=== PATIENT | male | born 1975 | race Two or more races ===

== ENCOUNTER 2021-11-10 12:40 | Inpatient (IN) | payer OTHER ==
[2021-11-10] MEDS ORDERED: MAGNESIUM CITRATE 300 ML BOTTLE PO PRN (12:54)
[2021-11-10] MEDS ORDERED: guaiFENesin 200 MG/10 ML 10 ML UNIT-DOSE CUPS PO PRN (12:54)
[2021-11-10] MEDS ORDERED: P-EPHED 60MG/TRIPROLIDI 2.5MG TABLET PO PRN (12:54)
[2021-11-10] MEDS ORDERED: MAGNESIUM HYDROX 2400MG/30ML ORAL SUSPENSION 30 ML CUP PO PRN (12:54)
[2021-11-10] MEDS ORDERED: cloNIDine HCL 0.1 MG TABLET PO STA (12:56)
[2021-11-10 16:01] VITALS: BMI 29.2
[2021-11-10 16:59] LABS: HEMATOCRIT 41.2 % (35.4-49); HEMOGLOBIN 13.4 GM/dL (11.7-16.9); MCH 26.5 pg (25.7-33.7); MCHC 32.5 g/dl (32.0-35.9); MEAN CELL VOLUME 81.7 fl (80-96); MEAN PLT VOLUME 9.4 fl (7.5-11.1); PLATELET COUNT 282 10^3/uL (134-434); RBC 5.04 M/mm3 (4.00-5.60); RDW 14.4 % (11.9-15.9); WHITE BLOOD COUNT 5.4 K/mm3 (4.0-10.0)
[2021-11-10 17:02] LABS: CHLORIDE 99 mmol/L (98-107); SODIUM 136 mmol/L (136-145)
[2021-11-10 17:07] LABS: ALBUMIN 3.4 g/dl (3.4-5.0); CALCIUM 8.9 mg/dL (8.5-10.1)
[2021-11-10 17:08] LABS: ANION GAP 10 MMOL/L (8-16); BLOOD UREA NITROGEN 13.4 mg/dL (7-18); CO2 28 mmol/L (21-32)
[2021-11-10 17:10] LABS: CREATININE 1.2 mg/dL (0.55-1.3); SGOT/AST 12 U/L (15-37)
[2021-11-10 17:12] LABS: TOT PROT 6.6 g/dl (6.4-8.2)
[2021-11-10 17:13] LABS: ALK PHOS 82 U/L (45-117)
[2021-11-10 17:16] LABS: BILIRUBIN,TOTAL 0.8 mg/dL (0.2-1)
[2021-11-10 17:27] LABS: SGPT/ALT 29 U/L (13-61)
[2021-11-10 17:29] LABS: SYPHILIS W/ RPR CONF NON-REACTIVE (NONREACTIVE)
[2021-11-10 18:57] LABS: GLUCOSE,RANDOM 495 mg/dL (74-106)
[2021-11-10] MEDS ORDERED: INSULIN (NOVOLOG) ASPART 100 UNITS/ML 10ML VIAL SQ ONE (20:23)
[2021-11-10] MEDS: hydrOXYzine PAMOATE 25 MG CAPSULE (FP) PO SCH ×2 (21:44→21:51)
[2021-11-10] MEDS: PRENATAL VITAMINS W/ FOLIC ACID TABLET (FP) PO SCH (21:44)
[2021-11-10] MEDS: INSULIN SLIDING SCALE (NOVOLOG) 1 VIAL SQ SCH (21:49)
[2021-11-10] MEDS: MELATONIN 5 MG TABLETS PO SCH (21:51)
[2021-11-10] MEDS: THIAMINE HCL 100 MG TABLET (FP) PO SCH (21:51)
[2021-11-10] MEDS: cloNIDine HCL 0.1 MG TABLET PO SCH (23:20)
[2021-11-10] MEDS ORDERED: TUBERCULIN PPD 5 TU/0.1ML VIAL ID ONE ×2 (23:51→23:57)
[2021-11-11] MEDS: metFORMIN HCL 500 MG TABLET (FP) PO SCH ×2 (06:32→16:44)
[2021-11-11] MEDS: sitaGLIPtin PHOSPHATE 50 MG TABLET PO SCH (06:32)
[2021-11-11] MEDS: hydrOXYzine PAMOATE 25 MG CAPSULE (FP) PO SCH ×2 (06:34→10:55)
[2021-11-11] MEDS ORDERED: INSULIN (NOVOLOG) ASPART 100 UNITS/ML 10ML VIAL ONE ×3 (07:39→21:48)
[2021-11-11] MEDS: INSULIN SLIDING SCALE (NOVOLOG) 1 VIAL SQ SCH ×4 (08:01→21:37)
[2021-11-11] MEDS: cloNIDine HCL 0.1 MG TABLET PO SCH ×2 (10:20→18:30)
[2021-11-11] MEDS: LOSARTAN POTASSIUM 50 MG TABLET PO SCH (10:21)
[2021-11-11] MEDS: PRENATAL VITAMINS W/ FOLIC ACID TABLET (FP) PO SCH (10:22)
[2021-11-11 17:21] LABS: URINE APPEARANCE CLEAR; URINE BILIRUBIN NEGATIVE (NEGATIVE); URINE COLOR YELLOW; URINE GLUCOSE (UA) 3+ (NEGATIVE); URINE KETONE NEGATIVE (NEGATIVE); URINE LEUK ESTERASE NEGATIVE (NEGATIVE); URINE NITRITE NEGATIVE (NEGATIVE); URINE PROTEIN NEGATIVE (NEGATIVE); URINE UROBILINOGEN 0.2 mg/dL (0.2-1.0)
[2021-11-11] MEDS: THIAMINE HCL 100 MG TABLET (FP) PO SCH (21:30)
[2021-11-11] MEDS: MELATONIN 5 MG TABLETS PO SCH (21:30)
[2021-11-11] MEDS: hydrOXYzine PAMOATE 25 MG CAPSULE (FP) PO PRN (21:31)
[2021-11-11] MEDS ORDERED: INSULIN (LEVEMIR) 100 UNITS/ML UNITS SQ ONE (21:49)
[2021-11-12] MEDS: cloNIDine HCL 0.1 MG TABLET PO SCH ×2 (06:23→16:28)
[2021-11-12] MEDS: sitaGLIPtin PHOSPHATE 50 MG TABLET PO SCH (06:23)
[2021-11-12] MEDS: metFORMIN HCL 500 MG TABLET (FP) PO SCH ×2 (06:23→16:27)
[2021-11-12] MEDS ORDERED: INSULIN (NOVOLOG) ASPART 100 UNITS/ML 10ML VIAL ONE (07:20)
[2021-11-12] MEDS: INSULIN SLIDING SCALE (NOVOLOG) 1 VIAL SQ SCH ×4 (08:02→21:29)
[2021-11-12] MEDS: LOSARTAN POTASSIUM 50 MG TABLET PO SCH (11:00)
[2021-11-12] MEDS: PRENATAL VITAMINS W/ FOLIC ACID TABLET (FP) PO SCH (11:53)
[2021-11-12] MEDS: hydrOXYzine PAMOATE 25 MG CAPSULE (FP) PO PRN (21:27)
[2021-11-12] MEDS: MELATONIN 5 MG TABLETS PO SCH (21:28)
[2021-11-12] MEDS: THIAMINE HCL 100 MG TABLET (FP) PO SCH (21:29)
[2021-11-13] MEDS: metFORMIN HCL 500 MG TABLET (FP) PO SCH ×2 (06:31→17:07)
[2021-11-13] MEDS: cloNIDine HCL 0.1 MG TABLET PO SCH ×2 (06:31→17:08)
[2021-11-13] MEDS: sitaGLIPtin PHOSPHATE 50 MG TABLET PO SCH (06:31)
[2021-11-13] MEDS: INSULIN SLIDING SCALE (NOVOLOG) 1 VIAL SQ SCH ×4 (07:01→21:04)
[2021-11-13] MEDS: LOSARTAN POTASSIUM 50 MG TABLET PO SCH (11:34)
[2021-11-13] MEDS: MAG HYDROX/AL HYDROX/SIMETH 30 ML UNIT-DOSE CUP PO PRN ×2 (11:35→18:20)
[2021-11-13] MEDS ORDERED: INSULIN (NOVOLOG) ASPART 100 UNITS/ML 10ML VIAL ONE (11:39)
[2021-11-13] MEDS: PRENATAL VITAMINS W/ FOLIC ACID TABLET (FP) PO SCH (11:40)
[2021-11-13] MEDS: LOPERAMIDE HCL 2 MG CAPSULE PO PRN ×2 (14:46→21:41)
[2021-11-13] MEDS: ONDANSETRON *ODT* 4 MG TABLET SL PRN (17:07)
[2021-11-13] MEDS: MELATONIN 5 MG TABLETS PO SCH (21:03)
[2021-11-13] MEDS: THIAMINE HCL 100 MG TABLET (FP) PO SCH (21:03)
[2021-11-13] MEDS: hydrOXYzine PAMOATE 25 MG CAPSULE (FP) PO PRN (21:03)
[2021-11-14] MEDS: sitaGLIPtin PHOSPHATE 50 MG TABLET PO SCH (06:12)
[2021-11-14] MEDS: LOPERAMIDE HCL 2 MG CAPSULE PO PRN (06:12)
[2021-11-14] MEDS: cloNIDine HCL 0.1 MG TABLET PO SCH ×2 (06:13→17:52)
[2021-11-14] MEDS: metFORMIN HCL 500 MG TABLET (FP) PO SCH ×2 (06:13→16:43)
[2021-11-14] MEDS: INSULIN SLIDING SCALE (NOVOLOG) 1 VIAL SQ SCH ×4 (07:35→21:13)
[2021-11-14] MEDS: MAG HYDROX/AL HYDROX/SIMETH 30 ML UNIT-DOSE CUP PO PRN (09:33)
[2021-11-14] MEDS: LOSARTAN POTASSIUM 50 MG TABLET PO SCH (09:33)
[2021-11-14] MEDS: PRENATAL VITAMINS W/ FOLIC ACID TABLET (FP) PO SCH (09:34)
[2021-11-14] MEDS ORDERED: BUPRENORPHINE/NALOXONE 4 MG/1 MG FILM PACKET SL ONE ×3 (10:15→22:00)
[2021-11-14] MEDS ORDERED: INSULIN (NOVOLOG) ASPART 100 UNITS/ML 10ML VIAL ONE ×2 (11:08→16:43)
[2021-11-14] MEDS: CEPHALEXIN MONOHYDRATE 500 MG CAPSULE (UD) PO SCH ×3 (11:55→23:02)
[2021-11-14] MEDS: BACITRACIN 0.9 GM PACKET TP SCH (15:00)
[2021-11-14] MEDS: IBUPROFEN 400 MG TABLET (FP) PO PRN (15:15)
[2021-11-14] MEDS: ACETAMINOPHEN 325 MG TABLET (FP) PO PRN (19:13)
[2021-11-14] MEDS: THIAMINE HCL 100 MG TABLET (FP) PO SCH (21:09)
[2021-11-14] MEDS: MELATONIN 5 MG TABLETS PO SCH (21:09)
[2021-11-14] MEDS: hydrOXYzine PAMOATE 25 MG CAPSULE (FP) PO PRN (21:10)
[2021-11-15] MEDS: metFORMIN HCL 500 MG TABLET (FP) PO SCH ×2 (05:59→16:50)
[2021-11-15] MEDS: CEPHALEXIN MONOHYDRATE 500 MG CAPSULE (UD) PO SCH ×4 (05:59→23:04)
[2021-11-15] MEDS: sitaGLIPtin PHOSPHATE 50 MG TABLET PO SCH (06:00)
[2021-11-15] MEDS: cloNIDine HCL 0.1 MG TABLET PO SCH ×2 (06:00→18:05)
[2021-11-15] MEDS: INSULIN SLIDING SCALE (NOVOLOG) 1 VIAL SQ SCH ×4 (07:56→21:19)
[2021-11-15] MEDS ORDERED: INSULIN (NOVOLOG) ASPART 100 UNITS/ML 10ML VIAL ONE ×2 (07:56→11:37)
[2021-11-15] MEDS: ACETAMINOPHEN 325 MG TABLET (FP) PO PRN ×3 (07:57→16:48)
[2021-11-15] MEDS: PRENATAL VITAMINS W/ FOLIC ACID TABLET (FP) PO SCH (09:49)
[2021-11-15] MEDS: LOSARTAN POTASSIUM 50 MG TABLET PO SCH (09:49)
[2021-11-15] MEDS: BACITRACIN 0.9 GM PACKET TP SCH (09:49)
[2021-11-15] MEDS ORDERED: BUPRENORPHINE/NALOXONE 12 MG-3 MG SL FILM PACKET SL SCH (10:00)
[2021-11-15] MEDS: CHLORTHALIDONE 25 MG TABLET PO SCH (11:32)
[2021-11-15] MEDS: FAMOTIDINE 20 MG TABLET PO SCH ×2 (11:32→21:15)
[2021-11-15 16:17] LABS: SARS-CoV-2 NAA Not Detected (Not Detected)
[2021-11-15] MEDS: MELATONIN 5 MG TABLETS PO SCH (21:15)
[2021-11-15] MEDS: THIAMINE HCL 100 MG TABLET (FP) PO SCH (21:15)
[2021-11-15] MEDS: ATORVASTATIN CA 40 MG TABLET (FP) PO SCH (21:16)
[2021-11-15] MEDS: hydrOXYzine PAMOATE 25 MG CAPSULE (FP) PO PRN (21:17)
[2021-11-15] MEDS: INSULIN (LEVEMIR) 100 UNITS/ML UNITS SQ SCH (21:18)
[2021-11-16] MEDS: cloNIDine HCL 0.1 MG TABLET PO SCH ×2 (06:10→17:33)
[2021-11-16] MEDS: metFORMIN HCL 500 MG TABLET (FP) PO SCH ×2 (06:11→16:51)
[2021-11-16] MEDS: CEPHALEXIN MONOHYDRATE 500 MG CAPSULE (UD) PO SCH ×4 (06:11→23:24)
[2021-11-16] MEDS: BUPRENORPHINE/NALOXONE 12 MG-3 MG SL FILM PACKET SL SCH ×2 (06:11→10:11)
[2021-11-16] MEDS: sitaGLIPtin PHOSPHATE 50 MG TABLET PO SCH (06:11)
[2021-11-16] MEDS ORDERED: INSULIN (NOVOLOG) ASPART 100 UNITS/ML 10ML VIAL ONE ×3 (06:37→21:37)
[2021-11-16] MEDS: INSULIN SLIDING SCALE (NOVOLOG) 1 VIAL SQ SCH ×4 (07:23→21:29)
[2021-11-16] MEDS: BACITRACIN 0.9 GM PACKET TP SCH (10:07)
[2021-11-16] MEDS: LOSARTAN POTASSIUM 50 MG TABLET PO SCH (10:07)
[2021-11-16] MEDS: PRENATAL VITAMINS W/ FOLIC ACID TABLET (FP) PO SCH (10:07)
[2021-11-16] MEDS: FAMOTIDINE 20 MG TABLET PO SCH ×2 (10:08→21:31)
[2021-11-16] MEDS: CHLORTHALIDONE 25 MG TABLET PO SCH (11:00)
[2021-11-16] MEDS: THIAMINE HCL 100 MG TABLET (FP) PO SCH (21:26)
[2021-11-16] MEDS: INSULIN (LEVEMIR) 100 UNITS/ML UNITS SQ SCH (21:29)
[2021-11-16] MEDS: ATORVASTATIN CA 40 MG TABLET (FP) PO SCH (21:31)
[2021-11-16] MEDS: SUVOREXANT 15 MG TABLET PO PRN (21:31)
[2021-11-16] MEDS ORDERED: INSULIN (LEVEMIR) 100 UNITS/ML UNITS SQ ONE (21:36)
[2021-11-17] MEDS: ACETAMINOPHEN 325 MG TABLET (FP) PO PRN ×2 (00:47→21:39)
[2021-11-17] MEDS: cloNIDine HCL 0.1 MG TABLET PO SCH ×2 (06:02→18:41)
[2021-11-17] MEDS: metFORMIN HCL 500 MG TABLET (FP) PO SCH ×2 (06:02→16:52)
[2021-11-17] MEDS: sitaGLIPtin PHOSPHATE 50 MG TABLET PO SCH (06:02)
[2021-11-17] MEDS: CEPHALEXIN MONOHYDRATE 500 MG CAPSULE (UD) PO SCH ×4 (06:02→23:07)
[2021-11-17] MEDS: BUPRENORPHINE/NALOXONE 12 MG-3 MG SL FILM PACKET SL SCH (06:06)
[2021-11-17] MEDS: INSULIN SLIDING SCALE (NOVOLOG) 1 VIAL SQ SCH ×4 (07:54→22:26)
[2021-11-17] MEDS ORDERED: INSULIN (NOVOLOG) ASPART 100 UNITS/ML 10ML VIAL ONE ×4 (07:56→22:30)
[2021-11-17] MEDS: BACITRACIN 0.9 GM PACKET TP SCH (09:45)
[2021-11-17] MEDS: CHLORTHALIDONE 25 MG TABLET PO SCH (09:45)
[2021-11-17] MEDS: LOSARTAN POTASSIUM 50 MG TABLET PO SCH (09:45)
[2021-11-17] MEDS: FAMOTIDINE 20 MG TABLET PO SCH (09:46)
[2021-11-17] MEDS: PRENATAL VITAMINS W/ FOLIC ACID TABLET (FP) PO SCH (09:46)
[2021-11-17] MEDS ORDERED: FAMOTIDINE 20 MG TABLET PO PRN (10:27)
[2021-11-17] MEDS: MAG HYDROX/AL HYDROX/SIMETH 30 ML UNIT-DOSE CUP PO PRN (18:40)
[2021-11-17] MEDS: THIAMINE HCL 100 MG TABLET (FP) PO SCH (21:36)
[2021-11-17] MEDS: ATORVASTATIN CA 40 MG TABLET (FP) PO SCH (21:39)
[2021-11-17] MEDS: SUVOREXANT 15 MG TABLET PO PRN (21:40)
[2021-11-17] MEDS ORDERED: amLODIPine BESYLATE 5 MG TABLET (FP) PO ONE (22:07)
[2021-11-17] MEDS: INSULIN (LEVEMIR) 100 UNITS/ML UNITS SQ SCH (22:26)
[2021-11-17] MEDS ORDERED: INSULIN (LEVEMIR) 100 UNITS/ML UNITS SQ ONE (22:31)
[2021-11-18] MEDS: IBUPROFEN 400 MG TABLET (FP) PO PRN (02:16)
[2021-11-18] MEDS: MAG HYDROX/AL HYDROX/SIMETH 30 ML UNIT-DOSE CUP PO PRN (02:16)
[2021-11-18] MEDS: ONDANSETRON *ODT* 4 MG TABLET SL PRN (02:41)
[2021-11-18 04:19] VITALS: BP 168/111; PULSE 101; TEMP 96.9
[2021-11-18] MEDS ORDERED: LOSARTAN POTASSIUM 50 MG TABLET PO SCH (06:00)
[2021-11-18] MEDS ORDERED: CHLORTHALIDONE 25 MG TABLET PO SCH (06:00)
[2021-11-18] MEDS: cloNIDine HCL 0.1 MG TABLET PO SCH (07:27)
[2021-11-18] MEDS: CEPHALEXIN MONOHYDRATE 500 MG CAPSULE (UD) PO SCH (07:28)
[2021-11-18] MEDS: metFORMIN HCL 500 MG TABLET (FP) PO SCH (07:29)
[2021-11-18] MEDS: sitaGLIPtin PHOSPHATE 50 MG TABLET PO SCH (07:29)
[2021-11-18] MEDS: BUPRENORPHINE/NALOXONE 12 MG-3 MG SL FILM PACKET SL SCH (07:29)
[2021-11-18] MEDS: INSULIN SLIDING SCALE (NOVOLOG) 1 VIAL SQ SCH (07:30)
== END 2021-11-18 04:43 | disposition short-term general hospital (02) | DRG 772 ==
LOC: YASAS 12:40 → Y3E 18:00
PROVIDERS: ADMIT Allergy & Immunology; ATTEND Allergy & Immunology
PROC: HZ42ZZZ Group Counseling for Substance Abuse Treatment, Cognitive-Behavioral (ICD-10-PCS; principal; 2021-11-10)
DX: F11.20 Opioid dependence, uncomplicated (principal); F14.20 Cocaine dependence, uncomplicated; F31.9 Bipolar disorder, unspecified; F39 Unspecified mood [affective] disorder; F90.9 Attention-deficit hyperactivity disorder, unspecified type; I10 Essential (primary) hypertension; E78.5 Hyperlipidemia, unspecified; L02.512 Cutaneous abscess of left hand; L02.414 Cutaneous abscess of left upper limb; E29.1 Testicular hypofunction; J06.9 Acute upper respiratory infection, unspecified; R51.9 Headache, unspecified; R00.0 Tachycardia, unspecified; R11.2 Nausea with vomiting, unspecified; Z88.8 Allergy status to other drugs, medicaments and biological substances; Z91.013 Allergy to seafood
CPT/HCPCS: 36415; 71045-TC-FY; 80053; 81003; 82962; 85027; 86780; 86803; 87522; 93005; 93010; C9803-CS; J0735; Q0162; U0003; U0005

== ENCOUNTER 2022-03-06 13:08 | Inpatient (IN) | payer OTHER ==
[2022-03-06 13:43] VITALS: BMI 39.0
[2022-03-06] MEDS ORDERED: MAGNESIUM CITRATE 300 ML BOTTLE PO PRN (15:46)
[2022-03-06] MEDS ORDERED: guaiFENesin 200 MG/10 ML 10 ML UNIT-DOSE CUPS PO PRN (15:46)
[2022-03-06] MEDS ORDERED: NICOTINE 10 MG CARTRIDGE (INHALER) IH PRN (15:46)
[2022-03-06] MEDS ORDERED: P-EPHED 60MG/TRIPROLIDI 2.5MG TABLET PO PRN (15:46)
[2022-03-06] MEDS ORDERED: MAG HYDROX/AL HYDROX/SIMETH 30 ML UNIT-DOSE CUP PO PRN (15:46)
[2022-03-06] MEDS ORDERED: LOPERAMIDE HCL 2 MG CAPSULE PO PRN (15:46)
[2022-03-06] MEDS ORDERED: MAGNESIUM HYDROX 2400MG/30ML ORAL SUSPENSION 30 ML CUP PO PRN (15:46)
[2022-03-06] MEDS ORDERED: hydrOXYzine PAMOATE 25 MG CAPSULE (FP) PO ONE (18:04)
[2022-03-06] MEDS: hydrOXYzine PAMOATE 25 MG CAPSULE (FP) PO SCH ×2 (18:19→21:40)
[2022-03-06] MEDS: metFORMIN HCL 500 MG TABLET (FP) PO SCH (18:19)
[2022-03-06] MEDS: LOSARTAN POTASSIUM 50 MG TABLET PO SCH (18:19)
[2022-03-06] MEDS ORDERED: BUPRENORPHINE/NALOXONE 4 MG/1 MG FILM PACKET ONE ×2 (18:38→18:47)
[2022-03-06] MEDS: BUPRENORPHINE/NALOXONE 8 MG/2 MG FILM PACKET SL SCH (18:49)
[2022-03-06] MEDS: INSULIN SLIDING SCALE (NOVOLOG) 1 VIAL SQ SCH (19:56)
[2022-03-06] MEDS: PRENATAL VITAMINS W/ FOLIC ACID TABLET (FP) PO SCH (19:56)
[2022-03-06] MEDS: FAMOTIDINE 20 MG TABLET PO SCH (21:40)
[2022-03-06] MEDS: THIAMINE HCL 100 MG TABLET (FP) PO SCH (21:40)
[2022-03-06] MEDS: INSULIN (LEVEMIR) 100 UNITS/ML UNITS SQ SCH (21:41)
[2022-03-06] MEDS: cloNIDine HCL 0.1 MG TABLET PO SCH (21:41)
[2022-03-06] MEDS: ATORVASTATIN CA 40 MG TABLET (FP) PO SCH (21:41)
[2022-03-06] MEDS ORDERED: MELATONIN 5 MG TABLETS PO SCH (22:00)
[2022-03-06] MEDS: CHLORTHALIDONE 25 MG TABLET PO SCH (23:49)
[2022-03-07] MEDS: metFORMIN HCL 500 MG TABLET (FP) PO SCH ×2 (06:42→16:38)
[2022-03-07] MEDS: hydrOXYzine PAMOATE 25 MG CAPSULE (FP) PO SCH ×2 (06:42→10:03)
[2022-03-07] MEDS: INSULIN SLIDING SCALE (NOVOLOG) 1 VIAL SQ SCH ×5 (06:43→21:03)
[2022-03-07] MEDS ORDERED: sitaGLIPtin PHOSPHATE 50 MG TABLET PO SCH (07:00)
[2022-03-07] MEDS: BUPRENORPHINE/NALOXONE 8 MG/2 MG FILM PACKET SL SCH (10:02)
[2022-03-07] MEDS: PRENATAL VITAMINS W/ FOLIC ACID TABLET (FP) PO SCH (10:02)
[2022-03-07] MEDS: FAMOTIDINE 20 MG TABLET PO SCH ×2 (10:03→21:03)
[2022-03-07] MEDS: LOSARTAN POTASSIUM 50 MG TABLET PO SCH (10:03)
[2022-03-07] MEDS: cloNIDine HCL 0.1 MG TABLET PO SCH ×2 (10:03→21:02)
[2022-03-07] MEDS: CHLORTHALIDONE 25 MG TABLET PO SCH (10:04)
[2022-03-07] MEDS ORDERED: MELATONIN 5 MG TABLETS PO PRN (10:29)
[2022-03-07] MEDS ORDERED: ARIPiprazole 5 MG TABLET PO ONE (11:45)
[2022-03-07 12:28] LABS: PH,URINE 6.5 (5.0-8.0); URINE APPEARANCE CLEAR; URINE BILIRUBIN NEGATIVE (NEGATIVE); URINE COLOR YELLOW; URINE GLUCOSE (UA) 2+ (NEGATIVE); URINE KETONE NEGATIVE (NEGATIVE); URINE LEUK ESTERASE NEGATIVE (NEGATIVE); URINE NITRITE NEGATIVE (NEGATIVE); URINE PROTEIN TRACE (NEGATIVE); URINE UROBILINOGEN 0.2 mg/dL (0.2-1.0)
[2022-03-07 13:25] LABS: BLOOD UREA NITROGEN 28.9 mg/dL (7-18)
[2022-03-07 13:27] LABS: ALBUMIN 2.9 g/dl (3.4-5.0); CREATININE 0.9 mg/dL (0.55-1.3)
[2022-03-07 13:28] LABS: BILIRUBIN,TOTAL 0.6 mg/dL (0.2-1); TOT PROT 6.4 g/dl (6.4-8.2)
[2022-03-07 13:43] LABS: SYPHILIS W/ RPR CONF NON-REACTIVE (NONREACTIVE)
[2022-03-07] MEDS: THIAMINE HCL 100 MG TABLET (FP) PO SCH (21:02)
[2022-03-07] MEDS: MELATONIN 5 MG TABLETS PO PRN (21:02)
[2022-03-07] MEDS: hydrOXYzine PAMOATE 25 MG CAPSULE (FP) PO PRN (21:02)
[2022-03-07] MEDS: INSULIN (LEVEMIR) 100 UNITS/ML UNITS SQ SCH (21:03)
[2022-03-07] MEDS: ATORVASTATIN CA 40 MG TABLET (FP) PO SCH (21:03)
[2022-03-08] MEDS: metFORMIN HCL 500 MG TABLET (FP) PO SCH ×2 (06:44→16:39)
[2022-03-08] MEDS: sitaGLIPtin PHOSPHATE 50 MG TABLET PO SCH (06:45)
[2022-03-08] MEDS: INSULIN SLIDING SCALE (NOVOLOG) 1 VIAL SQ SCH ×4 (06:45→21:36)
[2022-03-08] MEDS: FAMOTIDINE 20 MG TABLET PO SCH ×2 (10:01→21:36)
[2022-03-08] MEDS: PRENATAL VITAMINS W/ FOLIC ACID TABLET (FP) PO SCH (10:01)
[2022-03-08] MEDS: ARIPiprazole 5 MG TABLET PO SCH (10:01)
[2022-03-08] MEDS: BUPRENORPHINE/NALOXONE 8 MG/2 MG FILM PACKET SL SCH (10:01)
[2022-03-08] MEDS: LOSARTAN POTASSIUM 50 MG TABLET PO SCH (10:01)
[2022-03-08] MEDS: cloNIDine HCL 0.1 MG TABLET PO SCH ×2 (10:01→21:33)
[2022-03-08] MEDS: CHLORTHALIDONE 25 MG TABLET PO SCH (10:01)
[2022-03-08 11:49] LABS: HEMATOCRIT 38.1 % (35.4-49); HEMOGLOBIN 12.2 GM/dL (11.7-16.9); MCH 25.2 pg (25.7-33.7); MEAN CELL VOLUME 78.6 fl (80-96); MEAN PLT VOLUME 8.8 fl (7.5-11.1); PLATELET COUNT 397 10^3/uL (134-434); RBC 4.85 M/mm3 (4.00-5.60); RDW 15.7 % (11.9-15.9); WHITE BLOOD COUNT 9.2 K/mm3 (4.0-10.0)
[2022-03-08] MEDS: THIAMINE HCL 100 MG TABLET (FP) PO SCH (21:33)
[2022-03-08] MEDS: hydrOXYzine PAMOATE 25 MG CAPSULE (FP) PO PRN (21:35)
[2022-03-08] MEDS: MELATONIN 5 MG TABLETS PO PRN (21:35)
[2022-03-08] MEDS: ATORVASTATIN CA 40 MG TABLET (FP) PO SCH (21:36)
[2022-03-08] MEDS: INSULIN (LEVEMIR) 100 UNITS/ML UNITS SQ SCH (21:36)
[2022-03-09] MEDS: sitaGLIPtin PHOSPHATE 50 MG TABLET PO SCH (06:18)
[2022-03-09] MEDS: metFORMIN HCL 500 MG TABLET (FP) PO SCH ×2 (06:18→16:49)
[2022-03-09] MEDS ORDERED: INSULIN SLIDING SCALE (NOVOLOG) 1 VIAL SQ ONE ×4 (06:22→16:49)
[2022-03-09] MEDS: INSULIN SLIDING SCALE (NOVOLOG) 1 VIAL SQ SCH ×4 (06:40→21:29)
[2022-03-09] MEDS: LOSARTAN POTASSIUM 50 MG TABLET PO SCH (09:03)
[2022-03-09] MEDS: PRENATAL VITAMINS W/ FOLIC ACID TABLET (FP) PO SCH (09:03)
[2022-03-09] MEDS: cloNIDine HCL 0.1 MG TABLET PO SCH ×2 (09:04→21:27)
[2022-03-09] MEDS: ARIPiprazole 5 MG TABLET PO SCH (09:04)
[2022-03-09] MEDS: FAMOTIDINE 20 MG TABLET PO SCH ×2 (09:04→21:28)
[2022-03-09] MEDS: BUPRENORPHINE/NALOXONE 8 MG/2 MG FILM PACKET SL SCH (09:04)
[2022-03-09] MEDS: ACETAMINOPHEN 325 MG TABLET (FP) PO PRN (09:06)
[2022-03-09] MEDS: CHLORTHALIDONE 25 MG TABLET PO SCH (12:07)
[2022-03-09] MEDS: IBUPROFEN 400 MG TABLET (FP) PO PRN (15:01)
[2022-03-09] MEDS: DOXYCYCLINE HYCLATE 100 MG TABLET PO SCH (18:46)
[2022-03-09] MEDS: ATORVASTATIN CA 40 MG TABLET (FP) PO SCH (21:28)
[2022-03-09] MEDS: MELATONIN 5 MG TABLETS PO PRN (21:29)
[2022-03-09] MEDS: hydrOXYzine PAMOATE 25 MG CAPSULE (FP) PO PRN (21:29)
[2022-03-09] MEDS: INSULIN (LEVEMIR) 100 UNITS/ML UNITS SQ SCH (21:29)
[2022-03-09] MEDS: THIAMINE HCL 100 MG TABLET (FP) PO SCH (21:29)
[2022-03-10] MEDS: INSULIN SLIDING SCALE (NOVOLOG) 1 VIAL SQ SCH ×4 (06:53→22:09)
[2022-03-10] MEDS: IBUPROFEN 400 MG TABLET (FP) PO PRN (06:54)
[2022-03-10] MEDS: metFORMIN HCL 500 MG TABLET (FP) PO SCH ×2 (06:55→16:46)
[2022-03-10] MEDS: sitaGLIPtin PHOSPHATE 50 MG TABLET PO SCH ×2 (06:56→16:55)
[2022-03-10] MEDS: ARIPiprazole 5 MG TABLET PO SCH (09:39)
[2022-03-10] MEDS: cloNIDine HCL 0.1 MG TABLET PO SCH ×2 (09:39→22:04)
[2022-03-10] MEDS: LOSARTAN POTASSIUM 50 MG TABLET PO SCH ×3 (09:39→13:03)
[2022-03-10] MEDS: FAMOTIDINE 20 MG TABLET PO SCH ×2 (09:39→22:10)
[2022-03-10] MEDS: PRENATAL VITAMINS W/ FOLIC ACID TABLET (FP) PO SCH (09:40)
[2022-03-10] MEDS: CHLORTHALIDONE 25 MG TABLET PO SCH (09:41)
[2022-03-10] MEDS: BUPRENORPHINE/NALOXONE 8 MG/2 MG FILM PACKET SL SCH (09:42)
[2022-03-10] MEDS: ACETAMINOPHEN 325 MG TABLET (FP) PO PRN (09:43)
[2022-03-10] MEDS: DOXYCYCLINE HYCLATE 100 MG TABLET PO SCH (09:46)
[2022-03-10] MEDS: CLOTRIMAZOLE 1% CREAM TP SCH ×2 (14:11→22:09)
[2022-03-10] MEDS ORDERED: INSULIN SLIDING SCALE (NOVOLOG) 1 VIAL SQ ONE (16:45)
[2022-03-10] MEDS: THIAMINE HCL 100 MG TABLET (FP) PO SCH (22:04)
[2022-03-10] MEDS: ATORVASTATIN CA 40 MG TABLET (FP) PO SCH (22:04)
[2022-03-10] MEDS: MELATONIN 5 MG TABLETS PO PRN (22:04)
[2022-03-10] MEDS: hydrOXYzine PAMOATE 25 MG CAPSULE (FP) PO PRN (22:05)
[2022-03-10] MEDS: INSULIN (LEVEMIR) 100 UNITS/ML UNITS SQ SCH (22:10)
[2022-03-11] MEDS: INSULIN SLIDING SCALE (NOVOLOG) 1 VIAL SQ SCH ×5 (06:20→21:11)
[2022-03-11] MEDS: metFORMIN HCL 500 MG TABLET (FP) PO SCH ×2 (06:20→16:23)
[2022-03-11] MEDS: sitaGLIPtin PHOSPHATE 50 MG TABLET PO SCH ×2 (06:20→16:23)
[2022-03-11] MEDS: ACETAMINOPHEN 325 MG TABLET (FP) PO PRN (07:42)
[2022-03-11] MEDS: BUPRENORPHINE/NALOXONE 8 MG/2 MG FILM PACKET SL SCH (09:58)
[2022-03-11] MEDS: PRENATAL VITAMINS W/ FOLIC ACID TABLET (FP) PO SCH (09:58)
[2022-03-11] MEDS: FAMOTIDINE 20 MG TABLET PO SCH ×2 (09:59→21:11)
[2022-03-11] MEDS: CLOTRIMAZOLE 1% CREAM TP SCH ×2 (09:59→21:12)
[2022-03-11] MEDS: cloNIDine HCL 0.1 MG TABLET PO SCH ×2 (09:59→21:10)
[2022-03-11] MEDS: LOSARTAN POTASSIUM 50 MG TABLET PO SCH (09:59)
[2022-03-11] MEDS: CHLORTHALIDONE 25 MG TABLET PO SCH (09:59)
[2022-03-11] MEDS: ARIPiprazole 5 MG TABLET PO SCH (09:59)
[2022-03-11] MEDS: IBUPROFEN 400 MG TABLET (FP) PO PRN (10:00)
[2022-03-11] MEDS ORDERED: INSULIN SLIDING SCALE (NOVOLOG) 1 VIAL SQ ONE (11:43)
[2022-03-11] MEDS: THIAMINE HCL 100 MG TABLET (FP) PO SCH (21:10)
[2022-03-11] MEDS: MELATONIN 5 MG TABLETS PO PRN (21:10)
[2022-03-11] MEDS: ATORVASTATIN CA 40 MG TABLET (FP) PO SCH (21:11)
[2022-03-11] MEDS: hydrOXYzine PAMOATE 25 MG CAPSULE (FP) PO PRN (21:12)
[2022-03-11] MEDS: INSULIN (LEVEMIR) 100 UNITS/ML UNITS SQ SCH (21:12)
[2022-03-12] MEDS: metFORMIN HCL 500 MG TABLET (FP) PO SCH ×2 (06:15→16:25)
[2022-03-12] MEDS: ACETAMINOPHEN 325 MG TABLET (FP) PO PRN (06:16)
[2022-03-12] MEDS: sitaGLIPtin PHOSPHATE 50 MG TABLET PO SCH ×2 (06:16→16:25)
[2022-03-12] MEDS: INSULIN SLIDING SCALE (NOVOLOG) 1 VIAL SQ SCH ×4 (06:55→21:27)
[2022-03-12] MEDS: LOSARTAN POTASSIUM 50 MG TABLET PO SCH (09:57)
[2022-03-12] MEDS: FAMOTIDINE 20 MG TABLET PO SCH ×2 (09:57→21:27)
[2022-03-12] MEDS: ARIPiprazole 5 MG TABLET PO SCH (09:57)
[2022-03-12] MEDS: PRENATAL VITAMINS W/ FOLIC ACID TABLET (FP) PO SCH (09:57)
[2022-03-12] MEDS: cloNIDine HCL 0.1 MG TABLET PO SCH ×2 (09:57→21:24)
[2022-03-12] MEDS: CLOTRIMAZOLE 1% CREAM TP SCH ×2 (09:58→21:27)
[2022-03-12] MEDS: BUPRENORPHINE/NALOXONE 8 MG/2 MG FILM PACKET SL SCH (09:58)
[2022-03-12] MEDS: CHLORTHALIDONE 25 MG TABLET PO SCH (09:58)
[2022-03-12] MEDS ORDERED: INSULIN SLIDING SCALE (NOVOLOG) 1 VIAL SQ ONE (11:35)
[2022-03-12] MEDS: MELATONIN 5 MG TABLETS PO PRN (21:24)
[2022-03-12] MEDS: hydrOXYzine PAMOATE 25 MG CAPSULE (FP) PO PRN (21:24)
[2022-03-12] MEDS: INSULIN (LEVEMIR) 100 UNITS/ML UNITS SQ SCH (21:27)
[2022-03-12] MEDS: ATORVASTATIN CA 40 MG TABLET (FP) PO SCH (21:27)
[2022-03-12] MEDS: THIAMINE HCL 100 MG TABLET (FP) PO SCH (21:27)
[2022-03-13] MEDS: sitaGLIPtin PHOSPHATE 50 MG TABLET PO SCH ×2 (06:09→16:49)
[2022-03-13] MEDS: metFORMIN HCL 500 MG TABLET (FP) PO SCH ×2 (06:09→16:49)
[2022-03-13] MEDS: INSULIN SLIDING SCALE (NOVOLOG) 1 VIAL SQ SCH ×4 (06:46→21:42)
[2022-03-13] MEDS: FAMOTIDINE 20 MG TABLET PO SCH ×2 (09:48→21:39)
[2022-03-13] MEDS: CLOTRIMAZOLE 1% CREAM TP SCH ×2 (09:48→21:42)
[2022-03-13] MEDS: cloNIDine HCL 0.1 MG TABLET PO SCH ×2 (09:48→21:38)
[2022-03-13] MEDS: ARIPiprazole 5 MG TABLET PO SCH (09:48)
[2022-03-13] MEDS: PRENATAL VITAMINS W/ FOLIC ACID TABLET (FP) PO SCH (09:48)
[2022-03-13] MEDS: CHLORTHALIDONE 25 MG TABLET PO SCH (09:48)
[2022-03-13] MEDS: LOSARTAN POTASSIUM 50 MG TABLET PO SCH (09:48)
[2022-03-13] MEDS: ACETAMINOPHEN 325 MG TABLET (FP) PO PRN (09:50)
[2022-03-13] MEDS: BUPRENORPHINE/NALOXONE 8 MG/2 MG FILM PACKET SL SCH (09:53)
[2022-03-13] MEDS ORDERED: INSULIN SLIDING SCALE (NOVOLOG) 1 VIAL SQ ONE ×3 (11:47→21:41)
[2022-03-13] MEDS: hydrOXYzine PAMOATE 25 MG CAPSULE (FP) PO PRN (21:39)
[2022-03-13] MEDS: MELATONIN 5 MG TABLETS PO PRN (21:39)
[2022-03-13] MEDS: ATORVASTATIN CA 40 MG TABLET (FP) PO SCH (21:39)
[2022-03-13] MEDS: THIAMINE HCL 100 MG TABLET (FP) PO SCH (21:39)
[2022-03-13] MEDS: INSULIN (LEVEMIR) 100 UNITS/ML UNITS SQ SCH (21:42)
[2022-03-14] MEDS: sitaGLIPtin PHOSPHATE 50 MG TABLET PO SCH ×2 (06:42→16:33)
[2022-03-14] MEDS: metFORMIN HCL 500 MG TABLET (FP) PO SCH ×2 (06:42→16:33)
[2022-03-14] MEDS: INSULIN SLIDING SCALE (NOVOLOG) 1 VIAL SQ SCH ×4 (06:43→21:32)
[2022-03-14] MEDS: ARIPiprazole 5 MG TABLET PO SCH (09:16)
[2022-03-14] MEDS: LOSARTAN POTASSIUM 50 MG TABLET PO SCH (09:16)
[2022-03-14] MEDS: cloNIDine HCL 0.1 MG TABLET PO SCH ×2 (09:16→21:30)
[2022-03-14] MEDS: CHLORTHALIDONE 25 MG TABLET PO SCH (09:17)
[2022-03-14] MEDS: FAMOTIDINE 20 MG TABLET PO SCH ×2 (09:17→21:33)
[2022-03-14] MEDS: CLOTRIMAZOLE 1% CREAM TP SCH ×2 (09:17→21:33)
[2022-03-14] MEDS: BUPRENORPHINE/NALOXONE 8 MG/2 MG FILM PACKET SL SCH (09:18)
[2022-03-14] MEDS: PRENATAL VITAMINS W/ FOLIC ACID TABLET (FP) PO SCH (09:18)
[2022-03-14] MEDS: IBUPROFEN 400 MG TABLET (FP) PO PRN (09:19)
[2022-03-14] MEDS ORDERED: INSULIN SLIDING SCALE (NOVOLOG) 1 VIAL SQ ONE (11:35)
[2022-03-14] MEDS: hydrOXYzine PAMOATE 25 MG CAPSULE (FP) PO PRN (21:29)
[2022-03-14] MEDS: INSULIN (LEVEMIR) 100 UNITS/ML UNITS SQ SCH (21:32)
[2022-03-14] MEDS: MELATONIN 5 MG TABLETS PO PRN (21:32)
[2022-03-14] MEDS: ATORVASTATIN CA 40 MG TABLET (FP) PO SCH (21:33)
[2022-03-14] MEDS: THIAMINE HCL 100 MG TABLET (FP) PO SCH (21:33)
[2022-03-15] MEDS: sitaGLIPtin PHOSPHATE 50 MG TABLET PO SCH ×2 (06:39→16:35)
[2022-03-15] MEDS: metFORMIN HCL 500 MG TABLET (FP) PO SCH ×2 (06:39→16:35)
[2022-03-15] MEDS: INSULIN SLIDING SCALE (NOVOLOG) 1 VIAL SQ SCH ×4 (07:01→21:05)
[2022-03-15] MEDS: CLOTRIMAZOLE 1% CREAM TP SCH ×2 (09:54→21:05)
[2022-03-15] MEDS: FAMOTIDINE 20 MG TABLET PO SCH ×2 (09:54→21:05)
[2022-03-15] MEDS: BUPRENORPHINE/NALOXONE 8 MG/2 MG FILM PACKET SL SCH (09:54)
[2022-03-15] MEDS: CHLORTHALIDONE 25 MG TABLET PO SCH (09:54)
[2022-03-15] MEDS: cloNIDine HCL 0.1 MG TABLET PO SCH ×2 (09:55→21:02)
[2022-03-15] MEDS: LOSARTAN POTASSIUM 50 MG TABLET PO SCH (09:55)
[2022-03-15] MEDS: ARIPiprazole 5 MG TABLET PO SCH (09:55)
[2022-03-15] MEDS: PRENATAL VITAMINS W/ FOLIC ACID TABLET (FP) PO SCH (09:55)
[2022-03-15] MEDS: IBUPROFEN 400 MG TABLET (FP) PO PRN (09:56)
[2022-03-15] MEDS: hydrOXYzine PAMOATE 25 MG CAPSULE (FP) PO PRN (21:03)
[2022-03-15] MEDS: MELATONIN 5 MG TABLETS PO PRN (21:03)
[2022-03-15] MEDS: THIAMINE HCL 100 MG TABLET (FP) PO SCH (21:05)
[2022-03-15] MEDS: INSULIN (LEVEMIR) 100 UNITS/ML UNITS SQ SCH (21:05)
[2022-03-15] MEDS: ATORVASTATIN CA 40 MG TABLET (FP) PO SCH (21:05)
[2022-03-16] MEDS: sitaGLIPtin PHOSPHATE 50 MG TABLET PO SCH ×2 (06:13→17:16)
[2022-03-16] MEDS: metFORMIN HCL 500 MG TABLET (FP) PO SCH ×2 (06:13→17:15)
[2022-03-16] MEDS: INSULIN SLIDING SCALE (NOVOLOG) 1 VIAL SQ SCH ×4 (06:57→21:39)
[2022-03-16] MEDS: CHLORTHALIDONE 25 MG TABLET PO SCH (09:44)
[2022-03-16] MEDS: cloNIDine HCL 0.1 MG TABLET PO SCH ×2 (09:44→21:33)
[2022-03-16] MEDS: ARIPiprazole 5 MG TABLET PO SCH (09:44)
[2022-03-16] MEDS: FAMOTIDINE 20 MG TABLET PO SCH ×2 (09:45→21:40)
[2022-03-16] MEDS: PRENATAL VITAMINS W/ FOLIC ACID TABLET (FP) PO SCH (09:45)
[2022-03-16] MEDS: BUPRENORPHINE/NALOXONE 8 MG/2 MG FILM PACKET SL SCH (09:45)
[2022-03-16] MEDS: CLOTRIMAZOLE 1% CREAM TP SCH ×2 (09:45→21:39)
[2022-03-16] MEDS: LOSARTAN POTASSIUM 50 MG TABLET PO SCH (09:45)
[2022-03-16] MEDS: IBUPROFEN 400 MG TABLET (FP) PO PRN (11:38)
[2022-03-16] MEDS: hydrOXYzine PAMOATE 25 MG CAPSULE (FP) PO PRN (21:33)
[2022-03-16] MEDS: MELATONIN 5 MG TABLETS PO PRN (21:33)
[2022-03-16] MEDS: ATORVASTATIN CA 40 MG TABLET (FP) PO SCH (21:35)
[2022-03-16] MEDS: INSULIN (LEVEMIR) 100 UNITS/ML UNITS SQ SCH (21:39)
[2022-03-16] MEDS: THIAMINE HCL 100 MG TABLET (FP) PO SCH (21:40)
[2022-03-17] MEDS: sitaGLIPtin PHOSPHATE 50 MG TABLET PO SCH ×2 (06:06→16:23)
[2022-03-17] MEDS: metFORMIN HCL 500 MG TABLET (FP) PO SCH ×2 (06:07→16:23)
[2022-03-17] MEDS: INSULIN SLIDING SCALE (NOVOLOG) 1 VIAL SQ SCH ×4 (06:54→21:27)
[2022-03-17] MEDS: IBUPROFEN 400 MG TABLET (FP) PO PRN (09:47)
[2022-03-17] MEDS: BUPRENORPHINE/NALOXONE 8 MG/2 MG FILM PACKET SL SCH (09:48)
[2022-03-17] MEDS: cloNIDine HCL 0.1 MG TABLET PO SCH ×2 (09:49→21:23)
[2022-03-17] MEDS: LOSARTAN POTASSIUM 50 MG TABLET PO SCH (09:50)
[2022-03-17] MEDS: ARIPiprazole 5 MG TABLET PO SCH (09:50)
[2022-03-17] MEDS: FAMOTIDINE 20 MG TABLET PO SCH (09:50)
[2022-03-17] MEDS: PRENATAL VITAMINS W/ FOLIC ACID TABLET (FP) PO SCH (09:50)
[2022-03-17] MEDS: CHLORTHALIDONE 25 MG TABLET PO SCH (09:50)
[2022-03-17] MEDS: CLOTRIMAZOLE 1% CREAM TP SCH ×2 (09:53→21:27)
[2022-03-17] MEDS ORDERED: BUPRENORPHINE/NALOXONE 8 MG/2 MG FILM PACKET SL SCH (12:30)
[2022-03-17] MEDS ORDERED: CHLORTHALIDONE 25 MG TABLET PO SCH (12:30)
[2022-03-17] MEDS: MELATONIN 5 MG TABLETS PO PRN (21:23)
[2022-03-17] MEDS: hydrOXYzine PAMOATE 25 MG CAPSULE (FP) PO PRN (21:23)
[2022-03-17] MEDS: INSULIN (LEVEMIR) 100 UNITS/ML UNITS SQ SCH (21:27)
[2022-03-17] MEDS: ATORVASTATIN CA 40 MG TABLET (FP) PO SCH (21:27)
[2022-03-17] MEDS: THIAMINE HCL 100 MG TABLET (FP) PO SCH (22:28)
[2022-03-18] MEDS: CHLORTHALIDONE 25 MG TABLET PO SCH (06:01)
[2022-03-18] MEDS: FAMOTIDINE 20 MG TABLET PO SCH ×2 (06:01→18:13)
[2022-03-18] MEDS: sitaGLIPtin PHOSPHATE 50 MG TABLET PO SCH ×2 (06:01→16:31)
[2022-03-18] MEDS: metFORMIN HCL 500 MG TABLET (FP) PO SCH ×2 (06:01→16:31)
[2022-03-18] MEDS: INSULIN SLIDING SCALE (NOVOLOG) 1 VIAL SQ SCH ×4 (06:38→21:37)
[2022-03-18] MEDS: cloNIDine HCL 0.1 MG TABLET PO SCH ×2 (09:48→21:36)
[2022-03-18] MEDS: BUPRENORPHINE/NALOXONE 8 MG/2 MG FILM PACKET SL SCH (09:48)
[2022-03-18] MEDS: CLOTRIMAZOLE 1% CREAM TP SCH ×2 (09:49→21:38)
[2022-03-18] MEDS: ARIPiprazole 5 MG TABLET PO SCH (09:49)
[2022-03-18] MEDS: LOSARTAN POTASSIUM 50 MG TABLET PO SCH (09:49)
[2022-03-18] MEDS: PRENATAL VITAMINS W/ FOLIC ACID TABLET (FP) PO SCH (09:50)
[2022-03-18] MEDS ORDERED: INSULIN SLIDING SCALE (NOVOLOG) 1 VIAL SQ ONE ×2 (16:30→21:35)
[2022-03-18] MEDS: ACETAMINOPHEN 325 MG TABLET (FP) PO PRN (18:51)
[2022-03-18] MEDS: ATORVASTATIN CA 40 MG TABLET (FP) PO SCH (21:36)
[2022-03-18] MEDS: THIAMINE HCL 100 MG TABLET (FP) PO SCH (21:36)
[2022-03-18] MEDS: MELATONIN 5 MG TABLETS PO PRN (21:36)
[2022-03-18] MEDS: hydrOXYzine PAMOATE 25 MG CAPSULE (FP) PO PRN (21:37)
[2022-03-18] MEDS: INSULIN (LEVEMIR) 100 UNITS/ML UNITS SQ SCH (21:38)
[2022-03-19] MEDS: FAMOTIDINE 20 MG TABLET PO SCH ×2 (06:07→17:29)
[2022-03-19] MEDS: metFORMIN HCL 500 MG TABLET (FP) PO SCH ×2 (06:08→17:26)
[2022-03-19] MEDS: CHLORTHALIDONE 25 MG TABLET PO SCH (06:08)
[2022-03-19] MEDS: sitaGLIPtin PHOSPHATE 50 MG TABLET PO SCH ×2 (06:08→17:28)
[2022-03-19] MEDS: INSULIN SLIDING SCALE (NOVOLOG) 1 VIAL SQ SCH ×4 (06:48→22:34)
[2022-03-19] MEDS: CLOTRIMAZOLE 1% CREAM TP SCH ×2 (09:32→22:34)
[2022-03-19] MEDS: BUPRENORPHINE/NALOXONE 8 MG/2 MG FILM PACKET SL SCH (09:32)
[2022-03-19] MEDS: LOSARTAN POTASSIUM 50 MG TABLET PO SCH (09:32)
[2022-03-19] MEDS: ARIPiprazole 5 MG TABLET PO SCH (09:32)
[2022-03-19] MEDS: cloNIDine HCL 0.1 MG TABLET PO SCH ×2 (09:32→22:31)
[2022-03-19] MEDS: ACETAMINOPHEN 325 MG TABLET (FP) PO PRN ×2 (09:32→19:47)
[2022-03-19] MEDS: PRENATAL VITAMINS W/ FOLIC ACID TABLET (FP) PO SCH (09:32)
[2022-03-19] MEDS ORDERED: INSULIN SLIDING SCALE (NOVOLOG) 1 VIAL SQ ONE ×2 (11:39→16:52)
[2022-03-19] MEDS: MELATONIN 5 MG TABLETS PO PRN (22:32)
[2022-03-19] MEDS: hydrOXYzine PAMOATE 25 MG CAPSULE (FP) PO PRN (22:32)
[2022-03-19] MEDS: ATORVASTATIN CA 40 MG TABLET (FP) PO SCH (22:32)
[2022-03-19] MEDS: INSULIN (LEVEMIR) 100 UNITS/ML UNITS SQ SCH (22:34)
[2022-03-19] MEDS: THIAMINE HCL 100 MG TABLET (FP) PO SCH (22:34)
[2022-03-20] MEDS: sitaGLIPtin PHOSPHATE 50 MG TABLET PO SCH ×2 (06:26→16:23)
[2022-03-20] MEDS: FAMOTIDINE 20 MG TABLET PO SCH ×2 (06:26→17:32)
[2022-03-20] MEDS: metFORMIN HCL 500 MG TABLET (FP) PO SCH ×2 (06:26→16:23)
[2022-03-20] MEDS: INSULIN SLIDING SCALE (NOVOLOG) 1 VIAL SQ SCH ×4 (06:27→21:01)
[2022-03-20] MEDS: CHLORTHALIDONE 25 MG TABLET PO SCH (06:27)
[2022-03-20] MEDS: cloNIDine HCL 0.1 MG TABLET PO SCH ×2 (09:53→21:00)
[2022-03-20] MEDS: ARIPiprazole 5 MG TABLET PO SCH (09:53)
[2022-03-20] MEDS: CLOTRIMAZOLE 1% CREAM TP SCH ×2 (09:53→21:01)
[2022-03-20] MEDS: LOSARTAN POTASSIUM 50 MG TABLET PO SCH (09:53)
[2022-03-20] MEDS: PRENATAL VITAMINS W/ FOLIC ACID TABLET (FP) PO SCH (09:53)
[2022-03-20] MEDS: BUPRENORPHINE/NALOXONE 8 MG/2 MG FILM PACKET SL SCH (09:54)
[2022-03-20] MEDS ORDERED: INSULIN SLIDING SCALE (NOVOLOG) 1 VIAL SQ ONE (11:46)
[2022-03-20] MEDS: hydrOXYzine PAMOATE 25 MG CAPSULE (FP) PO PRN (21:00)
[2022-03-20] MEDS: MELATONIN 5 MG TABLETS PO PRN (21:00)
[2022-03-20] MEDS: THIAMINE HCL 100 MG TABLET (FP) PO SCH (21:01)
[2022-03-20] MEDS: ATORVASTATIN CA 40 MG TABLET (FP) PO SCH (21:01)
[2022-03-20] MEDS: INSULIN (LEVEMIR) 100 UNITS/ML UNITS SQ SCH (21:01)
[2022-03-21] MEDS: INSULIN SLIDING SCALE (NOVOLOG) 1 VIAL SQ SCH ×4 (06:10→21:05)
[2022-03-21] MEDS: sitaGLIPtin PHOSPHATE 50 MG TABLET PO SCH ×2 (06:10→16:25)
[2022-03-21] MEDS: metFORMIN HCL 500 MG TABLET (FP) PO SCH ×2 (06:11→16:25)
[2022-03-21] MEDS: CHLORTHALIDONE 25 MG TABLET PO SCH (06:11)
[2022-03-21] MEDS: FAMOTIDINE 20 MG TABLET PO SCH ×2 (06:12→19:06)
[2022-03-21] MEDS: LOSARTAN POTASSIUM 50 MG TABLET PO SCH (09:43)
[2022-03-21] MEDS: PRENATAL VITAMINS W/ FOLIC ACID TABLET (FP) PO SCH (09:43)
[2022-03-21] MEDS: ARIPiprazole 5 MG TABLET PO SCH (09:44)
[2022-03-21] MEDS: cloNIDine HCL 0.1 MG TABLET PO SCH ×2 (09:44→21:03)
[2022-03-21] MEDS: BUPRENORPHINE/NALOXONE 8 MG/2 MG FILM PACKET SL SCH (09:45)
[2022-03-21] MEDS: IBUPROFEN 400 MG TABLET (FP) PO PRN (09:47)
[2022-03-21] MEDS: CLOTRIMAZOLE 1% CREAM TP SCH ×2 (09:48→21:05)
[2022-03-21] MEDS ORDERED: cloNIDine HCL 0.1 MG TABLET PO SCH (11:00)
[2022-03-21] MEDS: MELATONIN 5 MG TABLETS PO PRN (21:03)
[2022-03-21] MEDS: hydrOXYzine PAMOATE 25 MG CAPSULE (FP) PO PRN (21:04)
[2022-03-21] MEDS: THIAMINE HCL 100 MG TABLET (FP) PO SCH (21:05)
[2022-03-21] MEDS: INSULIN (LEVEMIR) 100 UNITS/ML UNITS SQ SCH (21:05)
[2022-03-21] MEDS: ATORVASTATIN CA 40 MG TABLET (FP) PO SCH (21:05)
[2022-03-22] MEDS: cloNIDine HCL 0.1 MG TABLET PO SCH ×2 (06:05→21:08)
[2022-03-22] MEDS: CHLORTHALIDONE 25 MG TABLET PO SCH (06:05)
[2022-03-22] MEDS: sitaGLIPtin PHOSPHATE 50 MG TABLET PO SCH ×2 (06:05→16:24)
[2022-03-22] MEDS: metFORMIN HCL 500 MG TABLET (FP) PO SCH ×2 (06:05→16:24)
[2022-03-22] MEDS: FAMOTIDINE 20 MG TABLET PO SCH ×2 (06:06→18:50)
[2022-03-22] MEDS: LOSARTAN POTASSIUM 50 MG TABLET PO SCH (06:07)
[2022-03-22] MEDS: INSULIN SLIDING SCALE (NOVOLOG) 1 VIAL SQ SCH ×4 (06:22→21:09)
[2022-03-22] MEDS: IBUPROFEN 400 MG TABLET (FP) PO PRN (09:46)
[2022-03-22] MEDS: ARIPiprazole 5 MG TABLET PO SCH (09:46)
[2022-03-22] MEDS: PRENATAL VITAMINS W/ FOLIC ACID TABLET (FP) PO SCH (09:47)
[2022-03-22] MEDS: BUPRENORPHINE/NALOXONE 8 MG/2 MG FILM PACKET SL SCH (09:48)
[2022-03-22] MEDS: CLOTRIMAZOLE 1% CREAM TP SCH ×2 (09:49→21:09)
[2022-03-22] MEDS: hydrOXYzine PAMOATE 25 MG CAPSULE (FP) PO PRN (21:08)
[2022-03-22] MEDS: MELATONIN 5 MG TABLETS PO PRN (21:08)
[2022-03-22] MEDS: THIAMINE HCL 100 MG TABLET (FP) PO SCH (21:09)
[2022-03-22] MEDS: ATORVASTATIN CA 40 MG TABLET (FP) PO SCH (21:09)
[2022-03-22] MEDS: INSULIN (LEVEMIR) 100 UNITS/ML UNITS SQ SCH (21:09)
[2022-03-23] MEDS: cloNIDine HCL 0.1 MG TABLET PO SCH ×2 (06:17→21:02)
[2022-03-23] MEDS: sitaGLIPtin PHOSPHATE 50 MG TABLET PO SCH ×2 (06:17→16:26)
[2022-03-23] MEDS: LOSARTAN POTASSIUM 50 MG TABLET PO SCH (06:17)
[2022-03-23] MEDS: FAMOTIDINE 20 MG TABLET PO SCH ×2 (06:17→17:57)
[2022-03-23] MEDS: metFORMIN HCL 500 MG TABLET (FP) PO SCH ×2 (06:17→16:26)
[2022-03-23] MEDS: CHLORTHALIDONE 25 MG TABLET PO SCH (06:18)
[2022-03-23] MEDS ORDERED: INSULIN SLIDING SCALE (NOVOLOG) 1 VIAL SQ ONE (06:54)
[2022-03-23] MEDS: INSULIN SLIDING SCALE (NOVOLOG) 1 VIAL SQ SCH ×4 (06:56→21:05)
[2022-03-23] MEDS: PRENATAL VITAMINS W/ FOLIC ACID TABLET (FP) PO SCH (09:59)
[2022-03-23] MEDS: BUPRENORPHINE/NALOXONE 8 MG/2 MG FILM PACKET SL SCH (10:00)
[2022-03-23] MEDS: CLOTRIMAZOLE 1% CREAM TP SCH ×2 (10:01→21:05)
[2022-03-23] MEDS: ARIPiprazole 5 MG TABLET PO SCH (11:41)
[2022-03-23] MEDS: MELATONIN 5 MG TABLETS PO PRN (21:03)
[2022-03-23] MEDS: hydrOXYzine PAMOATE 25 MG CAPSULE (FP) PO PRN (21:03)
[2022-03-23] MEDS: THIAMINE HCL 100 MG TABLET (FP) PO SCH (21:05)
[2022-03-23] MEDS: INSULIN (LEVEMIR) 100 UNITS/ML UNITS SQ SCH (21:05)
[2022-03-23] MEDS: ATORVASTATIN CA 40 MG TABLET (FP) PO SCH (21:05)
[2022-03-24] MEDS: cloNIDine HCL 0.1 MG TABLET PO SCH ×2 (06:15→21:00)
[2022-03-24] MEDS: FAMOTIDINE 20 MG TABLET PO SCH ×2 (06:15→18:51)
[2022-03-24] MEDS: LOSARTAN POTASSIUM 50 MG TABLET PO SCH (06:15)
[2022-03-24] MEDS: metFORMIN HCL 500 MG TABLET (FP) PO SCH ×2 (06:15→16:39)
[2022-03-24] MEDS: INSULIN SLIDING SCALE (NOVOLOG) 1 VIAL SQ SCH ×4 (06:16→21:01)
[2022-03-24] MEDS: CHLORTHALIDONE 25 MG TABLET PO SCH (06:16)
[2022-03-24] MEDS: sitaGLIPtin PHOSPHATE 50 MG TABLET PO SCH ×2 (06:16→16:39)
[2022-03-24] MEDS: BUPRENORPHINE/NALOXONE 8 MG/2 MG FILM PACKET SL SCH (06:16)
[2022-03-24] MEDS: IBUPROFEN 400 MG TABLET (FP) PO PRN (09:51)
[2022-03-24] MEDS: CLOTRIMAZOLE 1% CREAM TP SCH ×2 (09:51→21:01)
[2022-03-24] MEDS: ARIPiprazole 5 MG TABLET PO SCH (09:51)
[2022-03-24] MEDS: PRENATAL VITAMINS W/ FOLIC ACID TABLET (FP) PO SCH (09:51)
[2022-03-24] MEDS: ATORVASTATIN CA 40 MG TABLET (FP) PO SCH (21:00)
[2022-03-24] MEDS: hydrOXYzine PAMOATE 25 MG CAPSULE (FP) PO PRN (21:00)
[2022-03-24] MEDS: INSULIN (LEVEMIR) 100 UNITS/ML UNITS SQ SCH (21:01)
[2022-03-24] MEDS: MELATONIN 5 MG TABLETS PO PRN (21:01)
[2022-03-24] MEDS: THIAMINE HCL 100 MG TABLET (FP) PO SCH (21:01)
[2022-03-25] MEDS: BUPRENORPHINE/NALOXONE 8 MG/2 MG FILM PACKET SL SCH (06:01)
[2022-03-25] MEDS: metFORMIN HCL 500 MG TABLET (FP) PO SCH ×2 (06:02→16:29)
[2022-03-25] MEDS: cloNIDine HCL 0.1 MG TABLET PO SCH ×2 (06:02→21:07)
[2022-03-25] MEDS: sitaGLIPtin PHOSPHATE 50 MG TABLET PO SCH ×2 (06:03→16:29)
[2022-03-25] MEDS: LOSARTAN POTASSIUM 50 MG TABLET PO SCH (06:03)
[2022-03-25] MEDS: FAMOTIDINE 20 MG TABLET PO SCH ×2 (06:04→18:30)
[2022-03-25] MEDS: CHLORTHALIDONE 25 MG TABLET PO SCH (06:04)
[2022-03-25] MEDS: INSULIN SLIDING SCALE (NOVOLOG) 1 VIAL SQ SCH ×4 (06:39→21:09)
[2022-03-25] MEDS: PRENATAL VITAMINS W/ FOLIC ACID TABLET (FP) PO SCH (09:42)
[2022-03-25] MEDS: ARIPiprazole 5 MG TABLET PO SCH (09:43)
[2022-03-25] MEDS: CLOTRIMAZOLE 1% CREAM TP SCH ×2 (09:43→21:09)
[2022-03-25] MEDS ORDERED: INSULIN SLIDING SCALE (NOVOLOG) 1 VIAL SQ ONE (11:38)
[2022-03-25 20:32] VITALS: RESP 18
[2022-03-25] MEDS: hydrOXYzine PAMOATE 25 MG CAPSULE (FP) PO PRN (21:07)
[2022-03-25] MEDS: MELATONIN 5 MG TABLETS PO PRN (21:07)
[2022-03-25] MEDS: ATORVASTATIN CA 40 MG TABLET (FP) PO SCH (21:09)
[2022-03-25] MEDS: INSULIN (LEVEMIR) 100 UNITS/ML UNITS SQ SCH (21:09)
[2022-03-25] MEDS: THIAMINE HCL 100 MG TABLET (FP) PO SCH (21:09)
[2022-03-26] MEDS: BUPRENORPHINE/NALOXONE 8 MG/2 MG FILM PACKET SL SCH (06:34)
[2022-03-26] MEDS: LOSARTAN POTASSIUM 50 MG TABLET PO SCH (06:35)
[2022-03-26] MEDS: metFORMIN HCL 500 MG TABLET (FP) PO SCH ×2 (06:35→16:24)
[2022-03-26] MEDS: cloNIDine HCL 0.1 MG TABLET PO SCH ×2 (06:35→21:01)
[2022-03-26] MEDS: FAMOTIDINE 20 MG TABLET PO SCH ×2 (06:35→18:40)
[2022-03-26] MEDS: INSULIN SLIDING SCALE (NOVOLOG) 1 VIAL SQ SCH ×4 (06:36→21:02)
[2022-03-26] MEDS: sitaGLIPtin PHOSPHATE 50 MG TABLET PO SCH ×2 (06:36→16:24)
[2022-03-26] MEDS: CHLORTHALIDONE 25 MG TABLET PO SCH (06:36)
[2022-03-26] MEDS: ARIPiprazole 5 MG TABLET PO SCH (09:56)
[2022-03-26] MEDS: CLOTRIMAZOLE 1% CREAM TP SCH ×2 (09:56→21:02)
[2022-03-26] MEDS: PRENATAL VITAMINS W/ FOLIC ACID TABLET (FP) PO SCH (09:57)
[2022-03-26] MEDS: ACETAMINOPHEN 325 MG TABLET (FP) PO PRN (09:57)
[2022-03-26] MEDS: MELATONIN 5 MG TABLETS PO PRN (21:00)
[2022-03-26] MEDS: INSULIN (LEVEMIR) 100 UNITS/ML UNITS SQ SCH (21:02)
[2022-03-26] MEDS: THIAMINE HCL 100 MG TABLET (FP) PO SCH (21:02)
[2022-03-26] MEDS: ATORVASTATIN CA 40 MG TABLET (FP) PO SCH (21:02)
[2022-03-26] MEDS: hydrOXYzine PAMOATE 25 MG CAPSULE (FP) PO PRN (21:02)
[2022-03-27] MEDS: BUPRENORPHINE/NALOXONE 8 MG/2 MG FILM PACKET SL SCH (06:14)
[2022-03-27] MEDS: cloNIDine HCL 0.1 MG TABLET PO SCH ×2 (06:18→21:00)
[2022-03-27] MEDS: FAMOTIDINE 20 MG TABLET PO SCH ×2 (06:18→17:47)
[2022-03-27] MEDS: metFORMIN HCL 500 MG TABLET (FP) PO SCH ×2 (06:18→16:35)
[2022-03-27] MEDS: sitaGLIPtin PHOSPHATE 50 MG TABLET PO SCH ×2 (06:18→16:35)
[2022-03-27] MEDS: LOSARTAN POTASSIUM 50 MG TABLET PO SCH (06:18)
[2022-03-27] MEDS: CHLORTHALIDONE 25 MG TABLET PO SCH (06:18)
[2022-03-27] MEDS: INSULIN SLIDING SCALE (NOVOLOG) 1 VIAL SQ SCH ×5 (07:16→21:01)
[2022-03-27] MEDS: CLOTRIMAZOLE 1% CREAM TP SCH ×2 (11:06→21:01)
[2022-03-27] MEDS: ARIPiprazole 5 MG TABLET PO SCH (11:06)
[2022-03-27] MEDS: PRENATAL VITAMINS W/ FOLIC ACID TABLET (FP) PO SCH (11:06)
[2022-03-27] MEDS ORDERED: INSULIN SLIDING SCALE (NOVOLOG) 1 VIAL SQ ONE (11:43)
[2022-03-27] MEDS: ACETAMINOPHEN 325 MG TABLET (FP) PO PRN (18:58)
[2022-03-27] MEDS: hydrOXYzine PAMOATE 25 MG CAPSULE (FP) PO PRN (18:58)
[2022-03-27] MEDS: MELATONIN 5 MG TABLETS PO PRN (21:00)
[2022-03-27] MEDS: THIAMINE HCL 100 MG TABLET (FP) PO SCH (21:00)
[2022-03-27] MEDS: ATORVASTATIN CA 40 MG TABLET (FP) PO SCH (21:01)
[2022-03-27] MEDS: INSULIN (LEVEMIR) 100 UNITS/ML UNITS SQ SCH (21:01)
[2022-03-28] MEDS: BUPRENORPHINE/NALOXONE 8 MG/2 MG FILM PACKET SL SCH (06:00)
[2022-03-28] MEDS: INSULIN SLIDING SCALE (NOVOLOG) 1 VIAL SQ SCH ×4 (06:04→21:08)
[2022-03-28] MEDS: metFORMIN HCL 500 MG TABLET (FP) PO SCH ×2 (06:04→16:23)
[2022-03-28] MEDS: LOSARTAN POTASSIUM 50 MG TABLET PO SCH (06:04)
[2022-03-28] MEDS: cloNIDine HCL 0.1 MG TABLET PO SCH ×2 (06:04→21:06)
[2022-03-28] MEDS: CHLORTHALIDONE 25 MG TABLET PO SCH (06:04)
[2022-03-28] MEDS: FAMOTIDINE 20 MG TABLET PO SCH ×2 (06:04→17:46)
[2022-03-28] MEDS: sitaGLIPtin PHOSPHATE 50 MG TABLET PO SCH ×2 (06:04→16:23)
[2022-03-28] MEDS: CLOTRIMAZOLE 1% CREAM TP SCH ×2 (10:38→21:08)
[2022-03-28] MEDS: ARIPiprazole 5 MG TABLET PO SCH (10:38)
[2022-03-28] MEDS: PRENATAL VITAMINS W/ FOLIC ACID TABLET (FP) PO SCH (10:38)
[2022-03-28] MEDS: ACETAMINOPHEN 325 MG TABLET (FP) PO PRN (15:07)
[2022-03-28] MEDS: MELATONIN 5 MG TABLETS PO PRN (21:06)
[2022-03-28] MEDS: hydrOXYzine PAMOATE 25 MG CAPSULE (FP) PO PRN (21:07)
[2022-03-28] MEDS: ATORVASTATIN CA 40 MG TABLET (FP) PO SCH (21:08)
[2022-03-28] MEDS: INSULIN (LEVEMIR) 100 UNITS/ML UNITS SQ SCH (21:08)
[2022-03-28] MEDS: THIAMINE HCL 100 MG TABLET (FP) PO SCH (21:08)
[2022-03-29] MEDS: BUPRENORPHINE/NALOXONE 8 MG/2 MG FILM PACKET SL SCH (06:08)
[2022-03-29] MEDS: CHLORTHALIDONE 25 MG TABLET PO SCH (06:09)
[2022-03-29] MEDS: metFORMIN HCL 500 MG TABLET (FP) PO SCH (06:09)
[2022-03-29] MEDS: sitaGLIPtin PHOSPHATE 50 MG TABLET PO SCH (06:09)
[2022-03-29] MEDS: LOSARTAN POTASSIUM 50 MG TABLET PO SCH (06:10)
[2022-03-29] MEDS: FAMOTIDINE 20 MG TABLET PO SCH (06:10)
[2022-03-29] MEDS: cloNIDine HCL 0.1 MG TABLET PO SCH (06:10)
[2022-03-29] MEDS: INSULIN SLIDING SCALE (NOVOLOG) 1 VIAL SQ SCH (06:12)
[2022-03-29 06:59] VITALS: BP 168/104; PULSE 73; TEMP 97.7
[2022-03-29] MEDS ORDERED: NALOXONE (NARCAN) HCL 4 MG/0.1 ML SPRAY NS ONE (09:00)
[2022-03-29] MEDS ORDERED: NALOXONE HCL (KLOXXADO) 8 MG SPRAY NS ONE (09:00)
== END 2022-03-29 09:05 | disposition home or self-care (01) | DRG 772 ==
LOC: YASAS 13:08 → Y3W 19:06
PROVIDERS: ADMIT Allergy & Immunology; ATTEND Surgery
PROC: HZ42ZZZ Group Counseling for Substance Abuse Treatment, Cognitive-Behavioral (ICD-10-PCS; principal; 2022-03-06)
DX: F14.20 Cocaine dependence, uncomplicated (principal); F11.20 Opioid dependence, uncomplicated; F31.9 Bipolar disorder, unspecified; F39 Unspecified mood [affective] disorder; F99 Mental disorder, not otherwise specified; I10 Essential (primary) hypertension; E78.5 Hyperlipidemia, unspecified; E29.1 Testicular hypofunction; E11.65 Type 2 diabetes mellitus with hyperglycemia; Z79.4 Long term (current) use of insulin; M70.32 Other bursitis of elbow, left elbow; N48.1 Balanitis
CPT/HCPCS: 36415; 80053; 81003; 82962; 85027; 86780; 86803; 87522; C9803-CS; U0003; U0005

== ENCOUNTER 2023-03-22 12:26 | Inpatient (IN) | payer OTHER ==
[2023-03-22] MEDS ORDERED: AMMONIUM LACTATE 12% LOTION 225 GM BOTTLE TP PRN (15:02)
[2023-03-22] MEDS ORDERED: LOPERAMIDE HCL 2 MG CAPSULE PO PRN (15:02)
[2023-03-22] MEDS ORDERED: IBUPROFEN 400 MG TABLET (FP) PO PRN (15:02)
[2023-03-22] MEDS ORDERED: COLLOIDAL OATMEAL 1 BAR EACH TP PRN (15:02)
[2023-03-22] MEDS ORDERED: NALOXONE HCL 0.4 MG/ML VIAL IM PRN (15:02)
[2023-03-22] MEDS ORDERED: MAGNESIUM HYDROX 2400MG/30ML ORAL SUSPENSION 30 ML CUP PO PRN (15:02)
[2023-03-22] MEDS ORDERED: MAG HYDROX/AL HYDROX/SIMETH 30 ML UNIT-DOSE CUP PO PRN (15:02)
[2023-03-22] MEDS ORDERED: NALOXONE HCL (KLOXXADO) 8 MG SPRAY NS PRN (15:02)
[2023-03-22] MEDS ORDERED: POLYETHYLENE GLYCOL (HEALTHYLAX) 3350 17 GM PACKET PO PRN (15:02)
[2023-03-22] MEDS ORDERED: BENZONATATE 200 MG CAPSULE PO PRN (15:02)
[2023-03-22] MEDS ORDERED: guaiFENesin 600 MG TABLET.ER (FP) PO PRN (15:02)
[2023-03-22] MEDS ORDERED: IBUPROFEN 600 MG TABLET (FP) PO PRN (15:02)
[2023-03-22] MEDS ORDERED: BENZOCAINE/MENTHOL (CHLORASEPTIC ) LOZENGE MM PRN (15:02)
[2023-03-22] MEDS: PRENATAL VITAMINS W/ FOLIC ACID TABLET (FP) PO SCH (19:34)
[2023-03-22] MEDS: metFORMIN HCL 500 MG TABLET (FP) PO SCH (19:56)
[2023-03-22] MEDS: cloNIDine HCL 0.1 MG TABLET PO SCH (21:35)
[2023-03-22] MEDS: THIAMINE HCL 100 MG TABLET (FP) PO SCH (21:35)
[2023-03-22] MEDS: MELATONIN 5 MG TABLETS PO SCH (21:35)
[2023-03-22] MEDS: FAMOTIDINE 20 MG TABLET PO SCH (21:35)
[2023-03-22] MEDS ORDERED: ATORVASTATIN CA 40 MG TABLET (FP) PO SCH (22:00)
[2023-03-23] MEDS: metFORMIN HCL 500 MG TABLET (FP) PO SCH (06:40)
[2023-03-23] MEDS ORDERED: sitaGLIPtin PHOSPHATE 50 MG TABLET PO SCH (07:00)
[2023-03-23] MEDS: PRENATAL VITAMINS W/ FOLIC ACID TABLET (FP) PO SCH (09:44)
[2023-03-23] MEDS: cloNIDine HCL 0.1 MG TABLET PO SCH ×2 (09:49→21:46)
[2023-03-23] MEDS: BUPRENORPHINE/NALOXONE 8 MG/2 MG FILM PACKET SL SCH (09:50)
[2023-03-23] MEDS: FAMOTIDINE 20 MG TABLET PO SCH (09:50)
[2023-03-23] MEDS ORDERED: LOSARTAN POTASSIUM 50 MG TABLET PO SCH (10:00)
[2023-03-23] MEDS ORDERED: TUBERCULIN PPD 5 TU/0.1ML SYRINGE (IN PATIENT USE ONLY) ID ONE (10:00)
[2023-03-23] MEDS ORDERED: CHLORTHALIDONE 25 MG TABLET PO SCH (10:00)
[2023-03-23 11:47] LABS: EPI CELLS 4 /uL (0-25.1); HYALINE CASTS 0 /uL (0-3.1); PH,URINE 6.5 (5.0-8.0); URINE APPEARANCE CLEAR; URINE BACTERIA 50 /uL (0-1359); URINE BILIRUBIN NEGATIVE (NEGATIVE); URINE COLOR YELLOW; URINE GLUCOSE (UA) 3+ (NEGATIVE); URINE KETONE NEGATIVE (NEGATIVE); URINE LEUK ESTERASE NEGATIVE (NEGATIVE); URINE NITRITE NEGATIVE (NEGATIVE); URINE PROTEIN 1+ (NEGATIVE); URINE RBC 3 /uL (0-23.9); URINE UROBILINOGEN 0.2 mg/dL (0.2-1.0); URINE WBC 2 /uL (0-25.8)
[2023-03-23 12:00] LABS: POTASSIUM 3.8 mmol/L (3.5-5.1)
[2023-03-23 12:05] LABS: CALCIUM 8.3 mg/dL (8.5-10.1)
[2023-03-23 12:06] LABS: ALBUMIN 3.3 g/dl (3.4-5.0); BLOOD UREA NITROGEN 29.2 mg/dL (7-18)
[2023-03-23 12:09] LABS: CREATININE 1.2 mg/dL (0.55-1.3)
[2023-03-23 12:11] LABS: BILIRUBIN,TOTAL 0.2 mg/dL (0.2-1); TOT PROT 7.2 g/dl (6.4-8.2)
[2023-03-23 12:31] LABS: SYPHILIS W/ RPR CONF NON-REACTIVE (NONREACTIVE)
[2023-03-23 12:33] LABS: HEMATOCRIT 32.6 % (35.4-49); HEMOGLOBIN 10.3 GM/dL (11.7-16.9); MCH 21.7 pg (25.7-33.7); MCHC 31.6 g/dl (32.0-35.9); MEAN CELL VOLUME 68.7 fl (80-96); MEAN PLT VOLUME 8.9 fl (7.5-11.1); PLATELET COUNT 167 10^3/uL (134-434); RBC 4.74 M/mm3 (4.00-5.60); RDW 22.3 % (11.9-15.9)
[2023-03-23 12:34] LABS: WHITE BLOOD COUNT 3.3 K/mm3 (4.0-10.0)
[2023-03-23] MEDS ORDERED: FAMOTIDINE 20 MG TABLET PO PRN (14:25)
[2023-03-23] MEDS ORDERED: NAPROXEN 500 MG TABLET PO PRN (14:26)
[2023-03-23] MEDS ORDERED: HYDROCORTISONE 2.5% LOTION - 1 BOTTLE TP PRN (14:26)
[2023-03-23] MEDS ORDERED: CLINDAMYCIN HCL 150 MG CAPSULE (FP) PO SCH (15:30)
[2023-03-23] MEDS ORDERED: FUROSEMIDE 20 MG TABLET (FP) PO SCH (15:30)
[2023-03-23] MEDS ORDERED: GABAPENTIN 300 MG CAPSULE PO SCH ×2 (15:30→22:00)
[2023-03-23] MEDS: EMPAGLIFLOZIN (NF) 10 MG TABLET PO SCH (16:00)
[2023-03-23] MEDS: FUROSEMIDE 20 MG TABLET (FP) PO SCH (17:53)
[2023-03-23] MEDS: GABAPENTIN 300 MG CAPSULE PO SCH ×2 (17:53→23:00)
[2023-03-23] MEDS: CLINDAMYCIN HCL 150 MG CAPSULE (FP) PO SCH ×2 (17:53→23:00)
[2023-03-23] MEDS: CARVEDILOL 6.25 MG TABLET (FP) PO SCH (21:45)
[2023-03-23] MEDS: THIAMINE HCL 100 MG TABLET (FP) PO SCH (21:46)
[2023-03-23] MEDS: SACUBITRIL/VALSARTAN 97 MG-103 MG TABLET PO SCH (21:46)
[2023-03-23] MEDS: MELATONIN 5 MG TABLETS PO SCH (21:47)
[2023-03-23] MEDS: INSULIN (LEVEMIR) 100 UNITS/ML UNITS SQ SCH (21:48)
[2023-03-24] MEDS: CLINDAMYCIN HCL 150 MG CAPSULE (FP) PO SCH ×3 (06:04→21:36)
[2023-03-24] MEDS: GABAPENTIN 300 MG CAPSULE PO SCH ×3 (06:04→21:36)
[2023-03-24] MEDS: cloNIDine HCL 0.1 MG TABLET PO SCH ×2 (07:17→17:15)
[2023-03-24] MEDS: FUROSEMIDE 20 MG TABLET (FP) PO SCH (09:57)
[2023-03-24] MEDS: BUPRENORPHINE/NALOXONE 8 MG/2 MG FILM PACKET SL SCH (09:57)
[2023-03-24] MEDS: PRENATAL VITAMINS W/ FOLIC ACID TABLET (FP) PO SCH (09:57)
[2023-03-24] MEDS: CARVEDILOL 6.25 MG TABLET (FP) PO SCH ×2 (09:57→21:36)
[2023-03-24] MEDS: SACUBITRIL/VALSARTAN 97 MG-103 MG TABLET PO SCH ×2 (09:58→21:37)
[2023-03-24] MEDS: ACETAMINOPHEN 325 MG TABLET (FP) PO PRN (11:29)
[2023-03-24] MEDS: EMPAGLIFLOZIN (NF) 10 MG TABLET PO SCH ×2 (13:18→15:03)
[2023-03-24] MEDS: hydrOXYzine PAMOATE 25 MG CAPSULE (FP) PO PRN (17:14)
[2023-03-24] MEDS: MELATONIN 5 MG TABLETS PO SCH (21:36)
[2023-03-24] MEDS: THIAMINE HCL 100 MG TABLET (FP) PO SCH (21:38)
[2023-03-24] MEDS: INSULIN (LEVEMIR) 100 UNITS/ML UNITS SQ SCH (21:55)
[2023-03-25] MEDS: cloNIDine HCL 0.1 MG TABLET PO SCH ×2 (06:37→17:21)
[2023-03-25] MEDS: GABAPENTIN 300 MG CAPSULE PO SCH ×3 (06:37→21:08)
[2023-03-25] MEDS: CLINDAMYCIN HCL 150 MG CAPSULE (FP) PO SCH ×3 (06:38→21:08)
[2023-03-25] MEDS: BUPRENORPHINE/NALOXONE 8 MG/2 MG FILM PACKET SL SCH (09:29)
[2023-03-25] MEDS: EMPAGLIFLOZIN (NF) 10 MG TABLET PO SCH (09:30)
[2023-03-25] MEDS: CARVEDILOL 6.25 MG TABLET (FP) PO SCH ×2 (09:30→21:08)
[2023-03-25] MEDS: PRENATAL VITAMINS W/ FOLIC ACID TABLET (FP) PO SCH (09:30)
[2023-03-25] MEDS: SACUBITRIL/VALSARTAN 97 MG-103 MG TABLET PO SCH ×2 (09:30→21:08)
[2023-03-25] MEDS: FUROSEMIDE 20 MG TABLET (FP) PO SCH (09:30)
[2023-03-25] MEDS: hydrOXYzine PAMOATE 25 MG CAPSULE (FP) PO PRN (17:21)
[2023-03-25] MEDS: MELATONIN 5 MG TABLETS PO SCH (21:07)
[2023-03-25] MEDS: THIAMINE HCL 100 MG TABLET (FP) PO SCH (21:07)
[2023-03-25] MEDS: INSULIN (LEVEMIR) 100 UNITS/ML UNITS SQ SCH (22:40)
[2023-03-26] MEDS: cloNIDine HCL 0.1 MG TABLET PO SCH ×2 (06:41→21:05)
[2023-03-26] MEDS: CLINDAMYCIN HCL 150 MG CAPSULE (FP) PO SCH ×3 (06:41→21:07)
[2023-03-26] MEDS: GABAPENTIN 300 MG CAPSULE PO SCH ×3 (06:41→21:05)
[2023-03-26] MEDS: CARVEDILOL 6.25 MG TABLET (FP) PO SCH ×2 (10:27→21:06)
[2023-03-26] MEDS: FUROSEMIDE 20 MG TABLET (FP) PO SCH (10:27)
[2023-03-26] MEDS: PRENATAL VITAMINS W/ FOLIC ACID TABLET (FP) PO SCH (10:27)
[2023-03-26] MEDS: EMPAGLIFLOZIN (NF) 10 MG TABLET PO SCH (10:27)
[2023-03-26] MEDS: SACUBITRIL/VALSARTAN 97 MG-103 MG TABLET PO SCH ×2 (10:28→21:06)
[2023-03-26] MEDS: BUPRENORPHINE/NALOXONE 8 MG/2 MG FILM PACKET SL SCH (10:28)
[2023-03-26] MEDS: BACITRACIN 0.9 GM PACKET TP SCH ×2 (11:04→21:05)
[2023-03-26] MEDS: ACETAMINOPHEN 325 MG TABLET (FP) PO PRN (11:41)
[2023-03-26] MEDS: INSULIN SLIDING SCALE (NOVOLOG) 1 VIAL SQ SCH (17:38)
[2023-03-26] MEDS: MELATONIN 5 MG TABLETS PO SCH (21:05)
[2023-03-26] MEDS: THIAMINE HCL 100 MG TABLET (FP) PO SCH (21:05)
[2023-03-26] MEDS: hydrOXYzine PAMOATE 25 MG CAPSULE (FP) PO PRN (21:07)
[2023-03-27] MEDS: INSULIN SLIDING SCALE (NOVOLOG) 1 VIAL SQ SCH ×2 (06:34→16:35)
[2023-03-27] MEDS: cloNIDine HCL 0.1 MG TABLET PO SCH ×3 (06:37→21:01)
[2023-03-27] MEDS: FUROSEMIDE 20 MG TABLET (FP) PO SCH (09:28)
[2023-03-27] MEDS: SACUBITRIL/VALSARTAN 97 MG-103 MG TABLET PO SCH ×2 (09:28→21:01)
[2023-03-27] MEDS: BACITRACIN 0.9 GM PACKET TP SCH ×2 (09:28→21:02)
[2023-03-27] MEDS: PRENATAL VITAMINS W/ FOLIC ACID TABLET (FP) PO SCH (09:28)
[2023-03-27] MEDS: EMPAGLIFLOZIN (NF) 10 MG TABLET PO SCH (09:28)
[2023-03-27] MEDS: GABAPENTIN 300 MG CAPSULE PO SCH ×3 (09:28→21:01)
[2023-03-27] MEDS: BUPRENORPHINE/NALOXONE 8 MG/2 MG FILM PACKET SL SCH (09:28)
[2023-03-27] MEDS: CLINDAMYCIN HCL 150 MG CAPSULE (FP) PO SCH ×3 (09:28→21:01)
[2023-03-27] MEDS: CARVEDILOL 6.25 MG TABLET (FP) PO SCH ×2 (09:28→21:01)
[2023-03-27] MEDS ORDERED: TESTOSTERONE CYPIONATE 200 MG/ML VIAL IM SCH (10:00)
[2023-03-27] MEDS: THIAMINE HCL 100 MG TABLET (FP) PO SCH (21:01)
[2023-03-27] MEDS: MELATONIN 5 MG TABLETS PO SCH (21:01)
[2023-03-27] MEDS: hydrOXYzine PAMOATE 25 MG CAPSULE (FP) PO PRN (21:02)
[2023-03-28] MEDS: INSULIN SLIDING SCALE (NOVOLOG) 1 VIAL SQ SCH ×2 (07:28→16:56)
[2023-03-28] MEDS: BACITRACIN 0.9 GM PACKET TP SCH ×2 (10:16→21:02)
[2023-03-28] MEDS: PRENATAL VITAMINS W/ FOLIC ACID TABLET (FP) PO SCH (10:16)
[2023-03-28] MEDS: BUPRENORPHINE/NALOXONE 8 MG/2 MG FILM PACKET SL SCH (10:17)
[2023-03-28] MEDS: cloNIDine HCL 0.1 MG TABLET PO SCH ×2 (10:17→21:01)
[2023-03-28] MEDS: GABAPENTIN 300 MG CAPSULE PO SCH ×3 (10:17→21:01)
[2023-03-28] MEDS: CLINDAMYCIN HCL 150 MG CAPSULE (FP) PO SCH ×3 (10:17→21:02)
[2023-03-28] MEDS: FUROSEMIDE 20 MG TABLET (FP) PO SCH (10:18)
[2023-03-28] MEDS: EMPAGLIFLOZIN (NF) 10 MG TABLET PO SCH (10:18)
[2023-03-28] MEDS: CARVEDILOL 6.25 MG TABLET (FP) PO SCH ×2 (10:18→21:01)
[2023-03-28] MEDS: SACUBITRIL/VALSARTAN 97 MG-103 MG TABLET PO SCH ×2 (10:19→22:38)
[2023-03-28] MEDS: THIAMINE HCL 100 MG TABLET (FP) PO SCH (21:01)
[2023-03-28] MEDS: hydrOXYzine PAMOATE 25 MG CAPSULE (FP) PO PRN (21:01)
[2023-03-28] MEDS: MELATONIN 5 MG TABLETS PO SCH (21:02)
[2023-03-29] MEDS ORDERED: INSULIN (NOVOLOG) ASPART 100 UNITS/ML 10ML VIAL ONE ×2 (04:25→07:02)
[2023-03-29] MEDS: INSULIN SLIDING SCALE (NOVOLOG) 1 VIAL SQ SCH (06:11)
[2023-03-29] MEDS: cloNIDine HCL 0.1 MG TABLET PO SCH (06:14)
[2023-03-29 07:26] VITALS: BP 125/84; PULSE 74; RESP 16; TEMP 98.7
[2023-03-29] MEDS: BACITRACIN 0.9 GM PACKET TP SCH (09:56)
[2023-03-29] MEDS: SACUBITRIL/VALSARTAN 97 MG-103 MG TABLET PO SCH (09:56)
[2023-03-29] MEDS: EMPAGLIFLOZIN (NF) 10 MG TABLET PO SCH (09:57)
[2023-03-29] MEDS: PRENATAL VITAMINS W/ FOLIC ACID TABLET (FP) PO SCH (09:57)
[2023-03-29] MEDS: BUPRENORPHINE/NALOXONE 8 MG/2 MG FILM PACKET SL SCH (09:57)
[2023-03-29] MEDS: CARVEDILOL 6.25 MG TABLET (FP) PO SCH (09:58)
[2023-03-29] MEDS: CLINDAMYCIN HCL 150 MG CAPSULE (FP) PO SCH (09:58)
[2023-03-29] MEDS: GABAPENTIN 300 MG CAPSULE PO SCH (09:58)
[2023-03-29] MEDS: FUROSEMIDE 20 MG TABLET (FP) PO SCH (09:58)
== END 2023-03-29 11:15 | disposition home or self-care (01) | DRG 772 ==
LOC: YASAS 12:26 → Y3W 18:50 → Y5N 03-28 12:30
PROVIDERS: ADMIT Allergy & Immunology; ATTEND Psychiatry & Neurology Pain Medicine
PROC: HZ42ZZZ Group Counseling for Substance Abuse Treatment, Cognitive-Behavioral (ICD-10-PCS; principal; 2023-03-22)
DX: F11.20 Opioid dependence, uncomplicated (principal); F14.20 Cocaine dependence, uncomplicated; F15.20 Other stimulant dependence, uncomplicated; F17.210 Nicotine dependence, cigarettes, uncomplicated; F31.9 Bipolar disorder, unspecified; F43.10 Post-traumatic stress disorder, unspecified; I10 Essential (primary) hypertension; L97.919 Non-pressure chronic ulcer of unspecified part of right lower leg with unspecified severity; A49.02 Methicillin resistant Staphylococcus aureus infection, unspecified site; E78.5 Hyperlipidemia, unspecified; E29.1 Testicular hypofunction; E11.9 Type 2 diabetes mellitus without complications; Z79.84 Long term (current) use of oral hypoglycemic drugs
CPT/HCPCS: 36415; 80053; 81003; 82962; 85027; 86780; 86803; 87070; 87186; 87205; 87522; 87635; 87811

== ENCOUNTER 2024-04-29 12:59 | Inpatient (IN) | payer OTHER ==
[2024-04-29] MEDS ORDERED: POLYETHYLENE GLYCOL (HEALTHYLAX) 3350 17 GM PACKET PO PRN (14:00)
[2024-04-29] MEDS ORDERED: ACETAMINOPHEN 325 MG TABLET (FP) PO PRN (14:00)
[2024-04-29] MEDS ORDERED: MAG HYDROX/AL HYDROX/SIMETH 30 ML UNIT-DOSE CUP PO PRN (14:00)
[2024-04-29] MEDS ORDERED: IBUPROFEN 400 MG TABLET (FP) PO PRN (14:00)
[2024-04-29] MEDS ORDERED: BENZONATATE 200 MG CAPSULE PO PRN (14:00)
[2024-04-29] MEDS ORDERED: NALOXONE (NARCAN) HCL 4 MG/0.1 ML SPRAY NS PRN (14:00)
[2024-04-29] MEDS ORDERED: MAGNESIUM HYDROX 2400MG/30ML ORAL SUSPENSION 30 ML CUP PO PRN (14:00)
[2024-04-29] MEDS ORDERED: LOPERAMIDE HCL 2 MG CAPSULE PO PRN (14:00)
[2024-04-29] MEDS ORDERED: BENZOCAINE/MENTHOL (CHLORASEPTIC ) LOZENGE MM PRN (14:00)
[2024-04-29] MEDS ORDERED: IBUPROFEN 600 MG TABLET (FP) PO PRN (14:00)
[2024-04-29] MEDS ORDERED: hydrOXYzine PAMOATE 25 MG CAPSULE (FP) PO PRN (14:00)
[2024-04-29] MEDS ORDERED: guaiFENesin 600 MG TABLET.ER (FP) PO PRN (14:00)
[2024-04-29] MEDS ORDERED: cloNIDine HCL 0.1 MG TABLET ONE (15:20)
[2024-04-29] MEDS ORDERED: IBUPROFEN 600 MG TABLET (FP) PO ONE (15:20)
[2024-04-29] MEDS: cloNIDine HCL 0.1 MG TABLET PO PRN (15:25)
[2024-04-29] MEDS: IBUPROFEN 600 MG TABLET (FP) PO ONE (15:29)
[2024-04-29] MEDS ORDERED: methaDONE HCL 10 MG TABLET (FOR DETOX USE ONLY) ONE (15:45)
[2024-04-29] MEDS: methaDONE HCL 10 MG TABLET (FOR DETOX USE ONLY) PO ONE (15:51)
[2024-04-29 16:24] VITALS: BMI 29.2
[2024-04-29] MEDS: metFORMIN HCL 500 MG TABLET (FP) PO SCH (16:56)
[2024-04-29] MEDS: SPIRONOLACTONE 25 MG TABLET PO SCH (16:56)
[2024-04-29] MEDS: INSULIN ASPART SLIDING SCALE (NOVOLOG) 1 VIAL SQ SCH (16:56)
[2024-04-29] MEDS: METOPROLOL TARTRATE 25 MG TABLET (FP) PO ONE (17:16)
[2024-04-29] MEDS: FUROSEMIDE 20 MG TABLET (FP) PO SCH (17:17)
[2024-04-29] MEDS: SACUBITRIL/VALSARTAN 97 MG-103 MG TABLET PO SCH (22:52)
[2024-04-29] MEDS: THIAMINE 100 MG TABLET PO SCH (22:53)
[2024-04-29] MEDS: MELATONIN 5 MG TABLETS PO SCH (22:53)
[2024-04-29] MEDS: CARVEDILOL 12.5 MG TABLET (FP) PO SCH (22:53)
[2024-04-29] MEDS: ATORVASTATIN CA 40 MG TABLET (FP) PO SCH (22:53)
[2024-04-30] MEDS: EMPAGLIFLOZIN (JARDIANCE) 10 MG TABLET PO SCH (06:15)
[2024-04-30] MEDS ORDERED: FUROSEMIDE 20 MG TABLET (FP) PO SCH (10:00)
[2024-04-30] MEDS ORDERED: EMPAGLIFLOZIN (JARDIANCE) 10 MG TABLET PO SCH (10:00)
[2024-04-30] MEDS: CHLORTHALIDONE 25 MG TABLET PO SCH (11:05)
[2024-04-30] MEDS: PRENATAL VITAMINS W/ FOLIC ACID TABLET (FP) PO SCH (11:07)
[2024-04-30 14:48] LABS: HEMATOCRIT 31.7 % (35.4-49); HEMOGLOBIN 10.1 GM/dL (11.7-16.9); MCH 24.3 pg (25.7-33.7); MCHC 31.8 g/dl (32.0-35.9); MEAN CELL VOLUME 76.5 fl (80-96); RBC 4.14 M/mm3 (4.00-5.60); RDW 16.6 % (11.9-15.9); WHITE BLOOD COUNT 4.8 K/mm3 (4.0-10.0)
[2024-04-30 15:07] LABS: POTASSIUM 4.1 mmol/L (3.5-5.1)
[2024-04-30 15:49] LABS: BLOOD UREA NITROGEN 27.4 mg/dL (7-18)
[2024-04-30 15:50] LABS: ALBUMIN 3.8 g/dl (3.4-5.0)
[2024-04-30 15:52] LABS: CALCIUM 9.7 mg/dL (8.5-10.1); CREATININE 1.8 mg/dL (0.55-1.3)
[2024-04-30 15:53] LABS: BILIRUBIN,TOTAL 0.3 mg/dL (0.2-1)
[2024-04-30] MEDS: NAPROXEN 500 MG TABLET PO PRN (22:45)
[2024-04-30 22:51] LABS: SYPHILIS W/ RPR CONF NON-REACTIVE (NONREACTIVE)
[2024-05-01] MEDS: methaDONE HCL 10 MG TABLET (FOR DETOX USE ONLY) PO ONE (09:01)
[2024-05-01] MEDS: METOCLOPRAMIDE HCL 10 MG TABLET (FP) PO ONE (10:30)
[2024-05-01] MEDS: cloNIDine HCL 0.1 MG TABLET PO ONE (18:22)
[2024-05-02] MEDS: hydrOXYzine PAMOATE 25 MG CAPSULE (FP) PO ONE (15:40)
[2024-05-02] MEDS: TRIMETHOBENZAMIDE HCL 200MG/2ML INJ IM ONE (15:40)
[2024-05-02] MEDS: hydrOXYzine PAMOATE 25 MG CAPSULE (FP) PO PRN (20:15)
[2024-05-03] MEDS: methaDONE HCL 10 MG TABLET (FOR DETOX USE ONLY) PO ONE (09:28)
[2024-05-04] MEDS: NALOXONE (NYS OPIOID OVERDOSE PROGRAM) 4 MG/0.1 ML SPRAY NS PRN (09:57)
[2024-05-04 10:01] VITALS: BP 175/102; PULSE 77; RESP 18; TEMP 97.8
== END 2024-05-04 10:05 | disposition home or self-care (01) | DRG 773 ==
LOC: YASAS 12:59 → Y3NR 14:47 → Y3N 15:23
PROVIDERS: ADMIT Allergy & Immunology; ATTEND Surgery
PROC: HZ2ZZZZ Detoxification Services for Substance Abuse Treatment (ICD-10-PCS; principal; 2024-04-29)
DX: F11.23 Opioid dependence with withdrawal (principal); F14.20 Cocaine dependence, uncomplicated; F15.20 Other stimulant dependence, uncomplicated; F31.9 Bipolar disorder, unspecified; F90.9 Attention-deficit hyperactivity disorder, unspecified type; E78.5 Hyperlipidemia, unspecified; I11.0 Hypertensive heart disease with heart failure; I50.9 Heart failure, unspecified; E11.59 Type 2 diabetes mellitus with other circulatory complications; Z79.4 Long term (current) use of insulin; Z79.84 Long term (current) use of oral hypoglycemic drugs
CPT/HCPCS: 36415; 80053; 80305; 80307; 82962; 85027; 86780; 86803; 87522; 87811; 93005; 93010

== ENCOUNTER 2024-08-27 13:39 | Inpatient (IN) | payer OTHER ==
[2024-08-27 14:59] VITALS: BMI 41.5
[2024-08-27] MEDS ORDERED: BENZOCAINE/MENTHOL (CHLORASEPTIC ) LOZENGE MM PRN (15:40)
[2024-08-27] MEDS ORDERED: LOPERAMIDE HCL 2 MG CAPSULE PO PRN (15:40)
[2024-08-27] MEDS ORDERED: guaiFENesin 600 MG TABLET.ER (FP) PO PRN (15:40)
[2024-08-27] MEDS ORDERED: BISMUTH SUBSALICYLATE 262 MG/15 ML BTL PO PRN (15:40)
[2024-08-27] MEDS ORDERED: POLYETHYLENE GLYCOL (HEALTHYLAX) 3350 17 GM PACKET PO PRN (15:40)
[2024-08-27] MEDS ORDERED: METHOCARBAMOL 500 MG TABLET PO PRN (15:40)
[2024-08-27] MEDS ORDERED: IBUPROFEN 600 MG TABLET (FP) PO PRN (15:40)
[2024-08-27] MEDS ORDERED: MAG HYDROX/AL HYDROX/SIMETH 30 ML UNIT-DOSE CUP PO PRN (15:40)
[2024-08-27] MEDS ORDERED: DICYCLOMINE HCL 10 MG CAPSULE PO PRN (15:40)
[2024-08-27] MEDS ORDERED: methaDONE HCL 10 MG TABLET (FOR DETOX USE ONLY) PO PRN (15:40)
[2024-08-27] MEDS ORDERED: NALOXONE (NARCAN) HCL 4 MG/0.1 ML SPRAY NS PRN (15:40)
[2024-08-27] MEDS ORDERED: IBUPROFEN 400 MG TABLET (FP) PO PRN (15:40)
[2024-08-27] MEDS ORDERED: ONDANSETRON *ODT* 4 MG TABLET SL PRN (15:40)
[2024-08-27] MEDS ORDERED: MAGNESIUM HYDROX 2400MG/30ML ORAL SUSPENSION 30 ML CUP PO PRN (15:40)
[2024-08-27] MEDS ORDERED: BENZONATATE 200 MG CAPSULE PO PRN (15:40)
[2024-08-27] MEDS ORDERED: cloNIDine HCL 0.1 MG TABLET ONE (17:31)
[2024-08-27] MEDS: cloNIDine HCL 0.1 MG TABLET PO PRN (17:32)
[2024-08-27] MEDS: methaDONE HCL 10 MG TABLET (FOR DETOX USE ONLY) PO ONE ×2 (18:16→18:23)
[2024-08-27] MEDS: NICOTINE 14 MG/24 HOURS TOPICAL PATCH TD SCH ×2 (18:22→18:24)
[2024-08-27] MEDS: metFORMIN HCL 500 MG TABLET (FP) PO SCH (18:22)
[2024-08-27] MEDS: PRENATAL VITAMINS W/ FOLIC ACID TABLET (FP) PO SCH (18:22)
[2024-08-27] MEDS: FUROSEMIDE 20 MG TABLET (FP) PO SCH (18:22)
[2024-08-27] MEDS: SULFAMETHOXAZOLE/TRIMETHOPRIM 800MG/160MG D.S. TABLET PO SCH (22:45)
[2024-08-27] MEDS: CARVEDILOL 12.5 MG TABLET (FP) PO SCH (22:45)
[2024-08-27] MEDS: MELATONIN 5 MG TABLETS PO SCH (22:46)
[2024-08-27] MEDS: THIAMINE 100 MG TABLET PO SCH (22:46)
[2024-08-27] MEDS: SACUBITRIL/VALSARTAN 97 MG-103 MG TABLET PO SCH (22:48)
[2024-08-28] MEDS ORDERED: INSULIN (LEVEMIR) 100 UNITS/ML UNITS SQ ONE (04:41)
[2024-08-28] MEDS: INSULIN (LEVEMIR) 100 UNITS/ML UNITS SQ SCH (06:15)
[2024-08-28] MEDS: EMPAGLIFLOZIN (JARDIANCE) 10 MG TABLET PO SCH (06:15)
[2024-08-28] MEDS ORDERED: SACUBITRIL/VALSARTAN 97 MG-103 MG TABLET PO SCH (10:00)
[2024-08-28] MEDS ORDERED: NICOTINE 14 MG/24 HOURS TOPICAL PATCH TD SCH (10:00)
[2024-08-28] MEDS: ATORVASTATIN CA 40 MG TABLET (FP) PO SCH (10:52)
[2024-08-28] MEDS: CHLORTHALIDONE 25 MG TABLET PO SCH (10:53)
[2024-08-28] MEDS: cloNIDine HCL 0.1 MG TABLET PO ONE ×2 (18:01→22:35)
[2024-08-28] MEDS: ASPIRIN 81 MG CHEWABLE TABLETS PO SCH (18:01)
[2024-08-28] MEDS: hydrOXYzine PAMOATE 25 MG CAPSULE (FP) PO PRN (22:36)
[2024-08-29] MEDS: cloNIDine HCL 0.1 MG TABLET PO SCH (10:51)
[2024-08-29] MEDS: methaDONE HCL 10 MG TABLET (FOR DETOX USE ONLY) PO ONE ×2 (10:52→13:14)
[2024-08-29] MEDS: cloNIDine HCL 0.1 MG TABLET PO ONE (13:14)
[2024-08-29] MEDS: CARVEDILOL 12.5 MG TABLET (FP) PO ONE (14:56)
[2024-08-31] MEDS: methaDONE HCL 10 MG TABLET (FOR DETOX USE ONLY) PO ONE (10:25)
[2024-08-31] MEDS: ACETAMINOPHEN 325 MG TABLET (FP) PO PRN (11:22)
[2024-09-01 05:45] VITALS: RESP 16
[2024-09-01 09:22] VITALS: BP 146/85; PULSE 70; TEMP 97.6
== END 2024-09-01 09:35 | disposition home or self-care (01) | DRG 773 ==
LOC: YASAS 13:39 → Y3N 16:40
PROVIDERS: ADMIT Allergy & Immunology; ATTEND Allergy & Immunology
PROC: HZ2ZZZZ Detoxification Services for Substance Abuse Treatment (ICD-10-PCS; principal; 2024-08-27)
DX: F11.23 Opioid dependence with withdrawal (principal); F14.20 Cocaine dependence, uncomplicated; F15.20 Other stimulant dependence, uncomplicated; F31.9 Bipolar disorder, unspecified; I11.0 Hypertensive heart disease with heart failure; I50.9 Heart failure, unspecified; E11.59 Type 2 diabetes mellitus with other circulatory complications; Z79.84 Long term (current) use of oral hypoglycemic drugs; E78.2 Mixed hyperlipidemia; E29.1 Testicular hypofunction
CPT/HCPCS: 80305; 80307; 82962; 93005; 93010